=== PATIENT | female | born 1980 | race Caucasian/White ===

== ENCOUNTER 2022-05-27 09:42 | Outpatient (CLI) | payer OTHER, SELFPAY ==
--- NOTE | 2022-05-27 09:55 | MM_ITS ---
WS: [id number] SCREENING DIGITAL BREAST TOMOSYNTHESIS MAMMOGRAM WITH CAD HISTORY: SCREENING COMPARISON: None available. Bilateral CC and MLO with tomosynthesis and synthetic mammography submitted. Computer aided detection analyzed. Breast composition: There are scattered areas of fibroglandular density. There is a very slight area of architectural distortion and asymmetry in the upper outer quadrant of the LEFT breast near 1-2 o'c lock. This asymmetry is in the posterior breast. Otherwise negative. MM/[id number] IMPRESSION: BI-RADS: 0-Incomplete: Need additional imaging evaluation FOLLOW UP: Need Additional Imaging LEFT breast: Spot compression views (CC and MLO). True ML. Ultrasound to follow if abnormality persists.
== END 2022-05-27 09:43 | disposition home or self-care (01) ==
LOC: RAD 09:51
PROVIDERS: PCP Nurse Practitioner; Visit Provider Nurse Practitioner
DX: Z12.31 Encounter for screening mammogram for malignant neoplasm of breast (principal)
CPT/HCPCS: 77063; 77067

== ENCOUNTER 2022-06-23 08:46 | Outpatient (CLI) | payer OTHER, SELFPAY ==
--- NOTE | 2022-06-23 08:55 | MM_ITS ---
WS: [id number] ADDITIONAL VIEWS LEFT MAMMOGRAM with tomosynthesis. LEFT BREAST ULTRASOUND HISTORY: ABNORMAL MAMMO COMPARISON: 05/27/2022 LEFT MAMMOGRAM: Spot compression views and true ML with tomosynthesis and sympathetic mammography. Asymmetry persists but there is less distortion. As this is the patient's initial examination ultraso und will also be performed to document no underlying abnormality seen only by ultrasound. LEFT BREAST ULTRASOUND 2-D and color Doppler imaging submitted. Ultrasound directed to the upper-outer quadrant. No abnormality is identified. Normal fibroglandular densities. MM/[id number] IMPRESSION: BI-RADS: 2-Benign FOLLOW UP: 1 Year Follow-up
== END 2022-06-23 08:47 | disposition home or self-care (01) ==
LOC: RAD 08:47
PROVIDERS: PCP Nurse Practitioner; Visit Provider Nurse Practitioner
DX: R92.8 Other abnormal and inconclusive findings on diagnostic imaging of breast (principal)
CPT/HCPCS: 76642; 77061; G0279

== ENCOUNTER 2022-08-12 20:00 | Outpatient (CLI) | payer OTHER, SELFPAY | END 2022-08-12 20:01 | disposition home or self-care (01) | LOC: SLEEP 08-13 07:41 | PROVIDERS: PCP Nurse Practitioner; Visit Provider Nurse Practitioner | DX: R06.83 Snoring (principal); R53.83 Other fatigue; G47.33 Obstructive sleep apnea (adult) (pediatric) | CPT/HCPCS: 95810 ==

== ENCOUNTER → 2022-09-01 12:39 | Outpatient (BNVA) | payer OTHER, SELFPAY | PROVIDERS: PCP Nurse Practitioner; Visit Provider Internal Medicine Pulmonary Disease | DX: J45.909 Unspecified asthma, uncomplicated (principal); J44.9 Chronic obstructive pulmonary disease, unspecified; R06.02 Shortness of breath | CPT/HCPCS: 36415; 82785; 85025; 86003; 99204 ==

== ENCOUNTER 2022-09-11 11:11 | Outpatient (CLI) | payer OTHER, SELFPAY ==
--- NOTE | 2022-09-11 11:22 | XR_ITS ---
WS: [id number] Chest 2 views, 09/11/2022 Clinical Data: Shortness of breath Comparison: None. Findings: No nodules, masses or effusions are seen. The heart is normal. The pulmonary vascularity is not increased. No pneumonia or pneumothorax is seen. XR/XR chest 2V* [id number] Impression: Negative chest.
== END 2022-09-11 11:12 | disposition home or self-care (01) ==
LOC: RAD 11:13
PROVIDERS: PCP Nurse Practitioner; Visit Provider Internal Medicine Pulmonary Disease
DX: R06.02 Shortness of breath (principal)
CPT/HCPCS: 71046

== ENCOUNTER → 2022-12-03 12:17 | Outpatient (BNVA) | payer OTHER, SELFPAY | PROVIDERS: PCP Nurse Practitioner; Visit Provider Internal Medicine Pulmonary Disease | DX: J45.909 Unspecified asthma, uncomplicated (principal); G47.33 Obstructive sleep apnea (adult) (pediatric); M25.641 Stiffness of right hand, not elsewhere classified; M25.642 Stiffness of left hand, not elsewhere classified | CPT/HCPCS: 99214 ==

== ENCOUNTER 2022-12-18 07:02 | Outpatient (CLI) | payer OTHER, SELFPAY | END 2022-12-18 07:03 | disposition home or self-care (01) | LOC: RT 07:04 | PROVIDERS: PCP Nurse Practitioner; Visit Provider Internal Medicine Pulmonary Disease | DX: J44.9 Chronic obstructive pulmonary disease, unspecified (principal) | CPT/HCPCS: 94010; 94726; 94729 ==

== ENCOUNTER → 2023-01-29 10:02 | Outpatient (BNVA) | payer OTHER, SELFPAY | PROVIDERS: PCP Nurse Practitioner; Visit Provider Internal Medicine Rheumatology | DX: M19.90 Unspecified osteoarthritis, unspecified site (principal); Z79.899 Other long term (current) drug therapy; Z11.59 Encounter for screening for other viral diseases | CPT/HCPCS: 36415; 73130; 80076; 82306; 82565; 85025; 85651; 86038; 86140; 86200; 86431; 86480; 86704; 86803; 87340; 99204 ==

== ENCOUNTER → 2023-02-18 13:23 | Outpatient (BNVA) | payer OTHER, SELFPAY | PROVIDERS: PCP Nurse Practitioner; Visit Provider Internal Medicine Pulmonary Disease | DX: J45.909 Unspecified asthma, uncomplicated (principal); M25.641 Stiffness of right hand, not elsewhere classified; M25.642 Stiffness of left hand, not elsewhere classified; G47.33 Obstructive sleep apnea (adult) (pediatric); F40.240 Claustrophobia; Z79.51 Long term (current) use of inhaled steroids | CPT/HCPCS: 99214 ==

== ENCOUNTER → 2023-04-02 09:27 | Outpatient (BNVA) | payer OTHER, SELFPAY | PROVIDERS: PCP Nurse Practitioner; Visit Provider Internal Medicine Rheumatology | DX: Z79.899 Other long term (current) drug therapy (principal); M19.90 Unspecified osteoarthritis, unspecified site; Z71.85 Encounter for immunization safety counseling; R21 Rash and other nonspecific skin eruption | CPT/HCPCS: 36415; 80076; 82565; 83520; 85025; 86140; 99214 ==

== ENCOUNTER 2023-05-22 00:36 | Emergency (ER) | payer OTHER, SELFPAY ==
--- NOTE | 2023-05-22 00:42 | XRR_ITS ---
PROCEDURE INFORMATION: Exam: XR Chest Exam date and time: 05/22/2023 1:10 AM Age: 43 years old Clinical indication: Chest pressure; Patient HX: C/O chest pain TECHNIQUE: Imaging protocol: Radiologic exam of the chest. Views: 1 view. COMPARISON: CR XR chest 2V* [id number] 09/11/2022 11:26 AM FINDINGS: Lungs: Unremarkable. No consolidation. Pleural spaces: Unremarkable. No pleural effusion. No pneumothorax. Heart/Mediastinum: Unremarkable. No cardiomegaly. Bones/joints: Unremarkable. XR/XR chest 1V portable [id number] IMPRESSION: No acute findings.
--- NOTE | 2023-05-22 00:44 | ECG_ITS ---
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 Measurements Intervals [place] Rate: 66 P: 43 NE: 127 QRS: 56 QRSD: 89 T: 19 QT: 404 QTc: 425 Interpretive Statements SINUS RHYTHM No previous ECG available for comparison Electronically Signed On 05-22-2023 7:07:34 CDT by Malika Radford M.D. [id number]
[2023-05-22 00:46] VITALS: BMI 34.9
[2023-05-22 00:49] VITALS: BP 145/79; PULSE 70; RESP 16; TEMP 36.7; O2SAT 99
[2023-05-22 01:11] LABS: Basophils # 0.1 10^3/uL (0.0-0.1); Basophils % 0.5 %; Eosinophils # 0.2 10^3/uL (0.0-0.8); Eosinophils % 1.5 %; Hematocrit 32.4 % (36-47); Lymphocytes # 3.2 10^3/uL (0.8-4.8); Lymphocytes % 29.3 %; Mean Corpuscular HGB Conc 31.2 g/dL (30-55); Mean Corpuscular Hemoglobin 27.2 pg (27-33); Mean Corpuscular Volume 87.1 fl (85-98); Mean Platelet Volume 9.5 fL (7.4-10.4); Monocytes # 1.1 10^3/uL (0.2-0.9); Monocytes % 9.9 %; Neutrophils # 6.38 10^3/uL (1.8-7.7); Neutrophils % 58.4 %; Nucleated Red Blood Cells % 0 %; Platelet Count 392 10^3/cmm (157-399); Red Blood Count 3.72 10^6/uL (3.85-5.65); Red Cell Distribution Width 13.2 % (12.1-15.1); White Blood Count 10.91 10^3/uL (3.29-11.43)
[2023-05-22 01:35] LABS: Troponin(5th) Baseline < 6 ng/L (0-10)
--- NOTE | 2023-05-22 01:37 | W.ED.CHESTPA ---
HPI - Chest Pain General: Chief Complaint: Chest Pain Stated Complaint: Chest Pains Since Yesterday Time Seen by Provider: 05/22/23 00:45 History of Present Illness: Patient presents to the ER with complaints of midsternal chest pain that radiated to her back. It started earlier today around 1630 at that time is about 8 out of 10 and then the pain lessened and then it returned about 20-30. She had the pain was too bad to lay down. She was nauseous and dizzy. She has appointment for an echo coming up within the next couple days. Patient has had a CT scan of her chest within the last several days that showed a diverticulum on the right ventricle. Patient did not know anything about this prior to the CT scan. Patient has had multiple x-rays of her chest before that were negative. Review of Systems General: Reports: 10 or more systems reviewed and unremarkable except in HPI and below PFSH ED PFSH: Medical History Asthma Attention deficit Autoimmune thyroiditis Cervicalgia Dysmenorrhea, unspecified Dianna's disease High risk medication use Immunization counseling Inflammatory arthritis Iron deficiency anemia, unspecified Low back pain, unspecified Low ferritin level Migraine with aura, not intractable, without status migrainosus DEYANIRA (obstructive sleep apnea) Other fatigue Personal history of traumatic brain injury Skin rash Family History Other Cancer Hypertension Lung disease Lupus Denies family history of Rheumatoid arthritis Diabetes CAD (coronary artery disease) Chronic kidney disease (CKD) Family history of premature coronary artery disease Stroke Social History Smoking and tobacco/nicotine status: never used tobacco/nicotine Alcohol intake: current Alcohol intake frequency: few times a month Physical Exam Const: COMMON NORMALS: no acute distress, average body habitus, patient oriented x3, no limitations, healthy appearing, alert and well nourished HENMT: COMMON NORMALS: normocephalic, atraumatic, hearing grossly normal bilaterally, external ears normal, Normal external nose present, moist oral mucous membranes and oropharynx normal HEAD & SCALP: normocephalic and atraumatic NOSE: Normal external nose present EXTERNAL EAR: Yes external ears normal Neck/C-Spine: COMMON NORMALS: full ROM, no lymphadenopathy, supple, no meningeal signs, no JVD and Thyroid normal THYROID: Thyroid normal Chest: COMMONS NORMALS: normal inspection of the chest; negative for normal palpation of entire chest wall ( Chest wall tenderness to palpate on right side of anterior chest) Resp: COMMON NORMALS: normal respiratory effort, No retractions, No use of accessory muscles and clear to auscultation bilaterally AUSCULTATION: clear to auscultation bilaterally Cardio: COMMON NORMALS: no JVD, regular rate, regular rhythm, S1 normal heart sound present, S2 normal heart sound present, No gallops present (Cardio), No clicks present (Cardio), No murmurs present (Cardio) and No rub (Cardio) RATE: regular rate RHYTHM: regular rhythm HEART SOUNDS: S1 normal heart sound present and S2 normal heart sound present GI: COMMON NORMALS: Normal to inspection, nondistended, normoactive bowel sounds present, Soft to palpation, non-tender, No hepatosplenomegaly present and no masses PALPATION: Yes Soft to palpation and Yes No hepatosplenomegaly present : COMMON NORMALS: Yes no CVA tenderness BLADDER/KIDNEY EXAM: Yes no CVA tenderness Back/Pelvis: COMMON NORMALS: no CVA tenderness Neuro: COMMON NORMALS: patient oriented x3 SENSORIUM/ORIENTATION: Yes alert MENINGEAL SIGNS: Yes no meningeal signs Course Vital Signs: Vital signs: Vital Signs Temperature 98.0 F 05/22/23 00:49 Pulse Rate 58 L 05/22/23 02:49 Respiratory Rate 18 05/22/23 02:49 Blood Pressure 117/82 05/22/23 02:49 Pulse Oximetry 99 05/22/23 02:49 MDM - Chest Pain Medical Decision Making Patient presents to the ER with episodic chest pain. Patient was able to bring up a CT on her phone and said she has a right ventricular diverticulum. Patient has an echo scheduled coming up. Patient was worked up in the standard cardiac fashion with serial labs and serial EKGs all of which was essentially benign. Patient be discharged home to keep her appointment for her echo. Patient should follow-up with her PCP in the next 7 to 10 days as needed. Differential Diagnosis Unlikely acute massive pulmonary embolism, acute respiratory failure, acute myocardial infarction, cardiac arrest or sudden cardiac Medical Records I reviewed the patient's medical records. Lab Data I reviewed the patient's lab results. 05/22/23 01:04 05/22/23 01:04 Radiology Impressions Chest X-Ray 05/22/23 00:42 IMPRESSION: No acute findings. Laboratory Results WBC 10.91 10^3/uL (3.29-11.43) 05/22/23 01:04 RBC 3.72 10^6/uL (3.85-5.65) L 05/22/23 01:04 Hgb 10.10 g/dL (11.27-16.99) L 05/22/23 01:04 Hct 32.4 % (36-47) L 05/22/23 01:04 MCV 87.1 fl (85-98) 05/22/23 01:04 MCH 27.2 pg (27-33) 05/22/23 01:04 MCHC 31.2 g/dL (30-55) 05/22/23 01:04 RDW 13.2 % (12.1-15.1) 05/22/23 01:04 Plt Count 392 10^3/cmm (157-399) 05/22/23 01:04 MPV 9.5 fL (7.4-10.4) 05/22/23 01:04 Neut % (Auto) 58.4 % 05/22/23 01:04 Lymph % (Auto) 29.3 % 05/22/23 01:04 [place] % (Auto) 9.9 % 05/22/23 01:04 Eos % (Auto) 1.5 % 05/22/23 01:04 Baso % (Auto) 0.5 % 05/22/23 01:04 Neut # (Auto) 6.38 10^3/uL (1.8-7.7) 05/22/23 01:04 Lymph # (Auto) 3.2 10^3/uL (0.8-4.8) 05/22/23 01:04 [place] # (Auto) 1.1 10^3/uL (0.2-0.9) H 05/22/23 01:04 Eos # (Auto) 0.2 10^3/uL (0.0-0.8) 05/22/23 01:04 Baso # (Auto) 0.1 10^3/uL (0.0-0.1) 05/22/23 01:04 Nucleated RBC % (auto) 0 % 05/22/23 01:04 Nucleated RBCs # 0.0 /100WBC 05/22/23 01:04 Sodium 139 mmol/L (136-145) 05/22/23 01:04 Potassium 3.9 mmol/L (3.5-5.1) 05/22/23 01:04 Chloride 104 mmol/L (98-107) 05/22/23 01:04 Carbon Dioxide 25 mmol/L (22-29) 05/22/23 01:04 Anion Gap 13.9 (5-19) 05/22/23 01:04 BUN 8 mg/dL (6-20) 05/22/23 01:04 Creatinine 0.6 mg/dL (0.5-0.9) 05/22/23 01:04 GFR Calculation 109.6 mL/min (90-130) 05/22/23 01:04 Glucose 98 mg/dL (65-115) 05/22/23 01:04 Calculated Osmolality 286 mOsm/kg (285-295) 05/22/23 01:04 Calcium 9.4 mg/dL (8.5-10.5) 05/22/23 01:04 Total Bilirubin 0.2 mg/dL (0.15-1.2) 05/22/23 01:04 AST 16 U/L (0-32) 05/22/23 01:04 ALT 11 U/L (0-33) 05/22/23 01:04 Alkaline Phosphatase 107 U/L (35-105) H 05/22/23 01:04 Troponin T Baseline < 6 ng/L (0-10) 05/22/23 01:04 Troponin T 120 Minute < 6.0 ng/L (0-10) 05/22/23 02:34 Delta Troponin T 0 ABS# (0-10) 05/22/23 02:34 Total Protein 6.9 g/dL (6.6-8.7) 05/22/23 01:04 Albumin 4.2 g/dL (3.5-5.2) 05/22/23 01:04 Globulin 2.7 g/dL (1.3-4.6) 05/22/23 01:04 All radiology interpretation(s) finalized by discharge EKG Data EKG 1: I personally reviewed and interpreted this EKG as follows: EKG interpretation date: 05/22/23 EKG interpretation time: 00:44 Prior EKG tracings: not available for review Interpretation: EKG showed ventricular rate 66 beats a minute, OH interval 127, QRS duration 89, QTc of 418, sinus rhythm, no ST-T wave changes EKG 2: I personally reviewed and interpreted this EKG as follows: EKG interpretation date: 05/22/23 EKG interpretation time: 02:55 Prior EKG tracings: available for review Interpretation: EKG shows ventricular rate 61 beats a minute, OH interval 129, QRS duration 90, QTc 431, sinus rhythm with a sinus arrhythmia. Discharge Plan Discharge Patient Disposition: Home Clinical Impression: Atypical chest pain Condition: Stable Prescriptions: No Action albuterol sulfate 90 mcg/actuation HFA aerosol inhaler 2 puff inhalation Q6H PRN fluticasone propion-salmeterol [Wixela Inhub] 100-50 mcg/dose blister with device 1 inh inhalation BID Qty: 60 3RF ascorbic acid (vitamin C) 250 mg tablet 250 mg PO DAILY cholecalciferol (vitamin D3) 25 mcg (1,000 unit) capsule 25 mcg PO DAILY ferrous sulfate 325 mg (65 mg iron) tablet 325 mg PO DAILY levothyroxine 125 mcg capsule 125 mcg PO DAILY ibuprofen 200 mg tablet 200 mg PO Q6H PRN hydroxychloroquine 200 mg tablet 200 mg PO BID Qty: 180 0RF leflunomide 20 mg tablet 20 mg PO DAILY Qty: 90 0RF prednisone 20 mg tablet See Rx Instructions PO .COMPLEX PRN (Reason: joint pain flare) Qty: 30 1RF Rx Instructions: take 1 daily for 3-7 days PRN joint pain flare PO PRN; Discharge Orders: Discharge ED (Routine); Ordered 05/22/23 Ordered By: Murtaza Otero Referrals: Sarah Santiago FNP [Primary Care Provider] - 1 week Patient Instructions: Chest Pain (ED) Activity Restrictions/Additional Instructions: please keep your appointment for your echo as previous scheduled. Please follow-up with your family practice physician for further evaluation and testing. If your chest pain returns or worsens Coding Level of Care Code ED Business Office Specialist for Maricarmen Michel
[2023-05-22 01:41] LABS: Alanine Aminotransferase 11 U/L (0-33); Albumin Level 4.2 g/dL (3.5-5.2); Alkaline Phosphatase 107 U/L (35-105); Anion Gap 13.9 (5-19); Aspartate Amino Transferase 16 U/L (0-32); Blood Urea Nitrogen 8 mg/dL (6-20); Calcium 9.4 mg/dL (8.5-10.5); Carbon Dioxide 25 mmol/L (22-29); Chloride 104 mmol/L (98-107); Globulin 2.7 g/dL (1.3-4.6); Glomerular Filtration Rate 109.6 mL/min (90-130); Glucose 98 mg/dL (65-115); Osmolality Calculated 286 mOsm/kg (285-295); Potassium 3.9 mmol/L (3.5-5.1); Sodium 139 mmol/L (136-145); Total Bilirubin 0.2 mg/dL (0.15-1.2); Total Protein 6.9 g/dL (6.6-8.7)
[2023-05-22 02:49] VITALS: BP 117/82; PULSE 58; RESP 18; O2SAT 99
--- NOTE | 2023-05-22 02:55 | ECG_ITS ---
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 Measurements Intervals [place] Rate: 61 P: 49 ND: 129 QRS: 60 QRSD: 90 T: 29 QT: 429 QTc: 433 Interpretive Statements SINUS RHYTHM WITH SINUS ARRHYTHMIA Compared to ECG 05/22/2023 00:44:23 No significant changes Electronically Signed On 05-22-2023 7:08:49 CDT by Malika Radford M.D. [id number]
[2023-05-22 03:01] LABS: Troponin 5 2HR < 6.0 ng/L (0-10); Troponin 5 2HR Delta 0 ABS# (0-10)
[2023-05-22 03:12] VITALS: BP 101/72; PULSE 52; RESP 16; O2SAT 99
== END 2023-05-22 03:28 | disposition home or self-care (01) ==
PROVIDERS: Emergency Provider Emergency Medicine; PCP Nurse Practitioner
DX: R07.89 Other chest pain (principal)
CPT/HCPCS: 71045; 80053; 84484; 85025; 93005; 99285

== ENCOUNTER 2023-05-28 08:17 | Outpatient (CLI) | payer OTHER, SELFPAY ==
--- NOTE | 2023-05-28 08:22 | MM_ITS ---
WS: [id number] BILATERAL SCREENING DIGITAL TOMOSYNTHESIS MAMMOGRAM WITH CAD HISTORY: SCREENING COMPARISON: 05/27/2022 and 06/23/2022 Bilateral CC and MLO views with tomosynthesis and synthetic mammography submitted. Computer aided det ection analyzed. Breast composition: There are scattered areas of fibroglandular density. No suspicious masses, microc alcifications or architectural distortion. Asymmetric soft tissue in the upper outer quadrant LEFT br east is similar to the prior study. IMPRESSION: MM/[id number] BI-RADS: 2-Benign FOLLOW UP: 1 Year Follow-up
== END 2023-05-28 08:18 | disposition home or self-care (01) ==
LOC: RAD 08:17
PROVIDERS: PCP Nurse Practitioner; Visit Provider Nurse Practitioner
DX: Z12.31 Encounter for screening mammogram for malignant neoplasm of breast (principal)
CPT/HCPCS: 77063; 77067

== ENCOUNTER → 2023-06-16 09:16 | Outpatient (BNVA) | payer OTHER, SELFPAY | PROVIDERS: PCP Nurse Practitioner; Referring Provider Nurse Practitioner; Visit Provider Internal Medicine Cardiovascular Disease | DX: Z01.810 Encounter for preprocedural cardiovascular examination (principal); J45.909 Unspecified asthma, uncomplicated; G47.33 Obstructive sleep apnea (adult) (pediatric); E06.3 Autoimmune thyroiditis | CPT/HCPCS: 99204 ==

== ENCOUNTER 2023-07-16 07:57 | Outpatient (CLI) | payer OTHER, SELFPAY ==
[2023-07-16 08:12] VITALS: PULSE 56; RESP 18; O2SAT 99
[2023-07-16 08:16] VITALS: PULSE 55
== END 2023-07-16 07:58 | disposition home or self-care (01) ==
LOC: RT 07:57
PROVIDERS: PCP Nurse Practitioner; Visit Provider Nurse Practitioner Family
DX: J45.909 Unspecified asthma, uncomplicated (principal)
CPT/HCPCS: 94060; 94729; J7613

== ENCOUNTER 2023-08-20 08:47 | Outpatient (CLI) | payer OTHER, SELFPAY ==
[2023-08-20 09:10] LABS: Basophils # 0.1 10^3/uL (0.0-0.1); Basophils % 1.1 %; Eosinophils # 0.3 10^3/uL (0.0-0.8); Eosinophils % 4.2 %; Hematocrit 32.6 % (36-47); Lymphocytes # 2.2 10^3/uL (0.8-4.8); Lymphocytes % 34.5 %; Mean Corpuscular Hemoglobin 25.6 pg (27-33); Mean Corpuscular Volume 82.7 fl (85-98); Mean Platelet Volume 9.5 fL (7.4-10.4); Monocytes # 0.6 10^3/uL (0.2-0.9); Monocytes % 9.9 %; Neutrophils # 3.24 10^3/uL (1.8-7.7); Nucleated Red Blood Cells % 0 %; Platelet Count 465 10^3/cmm (157-399); Red Blood Count 3.94 10^6/uL (3.85-5.65); Red Cell Distribution Width 13.3 % (12.1-15.1); White Blood Count 6.47 10^3/uL (3.29-11.43)
[2023-08-20 09:27] LABS: Alanine Aminotransferase 20 U/L (0-33); Albumin Level 3.9 g/dL (3.5-5.2); Alkaline Phosphatase 108 U/L (35-105); Aspartate Amino Transferase 27 U/L (0-32); C Reactive Protein 5.3 mg/L (0.0-4.9); Ferritin 8 ng/mL (15-150); Globulin 3.6 g/dL (1.3-4.6); Glomerular Filtration Rate 109.6 mL/min (90-130); Iron 32 ug/dL (37-145); Percent Saturation 8.4 % (20-50); Total Bilirubin 0.2 mg/dL (0.15-1.2); Total Iron Binding Capacity 378 mcg/dl; Total Protein 7.5 g/dL (6.6-8.7); Unsaturated Iron Binding 346 ug/dL (112-347)
== END 2023-08-20 08:48 | disposition home or self-care (01) ==
LOC: LAB 08:47
PROVIDERS: PCP Nurse Practitioner; Visit Provider Internal Medicine Rheumatology
DX: M19.90 Unspecified osteoarthritis, unspecified site (principal); Z79.899 Other long term (current) drug therapy; D64.9 Anemia, unspecified
CPT/HCPCS: 36415; 80076; 82565; 82728; 83540; 83550; 85025; 86140

== ENCOUNTER → 2023-09-28 08:09 | Outpatient (BNVA) | payer OTHER, SELFPAY | PROVIDERS: PCP Nurse Practitioner; Visit Provider Podiatrist Foot & Ankle Surgery | DX: Q66.71 Congenital pes cavus, right foot; Q66.72 Congenital pes cavus, left foot; M72.2 Plantar fascial fibromatosis | CPT/HCPCS: 73630; 99203 ==

== ENCOUNTER → 2023-10-01 09:12 | Outpatient (BNVA) | payer OTHER, SELFPAY | PROVIDERS: PCP Nurse Practitioner; Visit Provider Internal Medicine Rheumatology | DX: Z79.899 Other long term (current) drug therapy (principal); M06.041 Rheumatoid arthritis without rheumatoid factor, right hand; M06.042 Rheumatoid arthritis without rheumatoid factor, left hand; Z71.85 Encounter for immunization safety counseling; R21 Rash and other nonspecific skin eruption | CPT/HCPCS: 99214 ==

== ENCOUNTER → 2023-11-26 08:40 | Outpatient (BNVA) | payer OTHER, SELFPAY | PROVIDERS: PCP Nurse Practitioner; Visit Provider Internal Medicine Pulmonary Disease | DX: J45.40 Moderate persistent asthma, uncomplicated (principal); M25.641 Stiffness of right hand, not elsewhere classified; M25.642 Stiffness of left hand, not elsewhere classified; G47.33 Obstructive sleep apnea (adult) (pediatric) | CPT/HCPCS: 99214 ==

== ENCOUNTER → 2024-01-13 07:56 | Outpatient (BNVA) | payer OTHER, SELFPAY | PROVIDERS: PCP Nurse Practitioner; Referring Provider Nurse Practitioner; Visit Provider Surgery | DX: D64.9 Anemia, unspecified | CPT/HCPCS: 99204 ==

== ENCOUNTER 2024-02-14 21:05 | Emergency (ER) | payer OTHER, SELFPAY ==
[2024-02-14 21:13] VITALS: BP 149/84; PULSE 62; RESP 17; TEMP 36.6; O2SAT 98; BMI 35.6
--- NOTE | 2024-02-14 21:54 | W.ED.FEVER ---
HPI - Fever General: Chief Complaint: Fever Stated Complaint: Positive for rock [place] Spotted Fever\Head Pain Time Seen by Provider: 02/14/24 21:25 History of Present Illness: 44-year-old female comes in today with feeling of malaise for the last week. Patient had been seen by her primary care and had a tick panel done. Patient reported recent tick bite about 2 weeks ago. Patient had checked the portal for her lab results and noted that she was positive for Hatch spotted fever. Patient was going to wait until she talk to her primary care tomorrow but started running fevers yesterday and was prodded by her significant other to come to the ER to get started on antibiotics sooner. Patient appears mildly unwell but not toxic. Patient appears in mild pain. Review of Systems General: Reports: 10 or more systems reviewed and unremarkable except in HPI and below PFSH ED PFSH: Medical History (Updated 02/14/24 @ 21:58 by TJ Brody) Seronegative rheumatoid arthritis of both hands Radial tunnel syndrome surgical release left arm Skin rash Immunization counseling High risk medication use Inflammatory arthritis Dianna's disease Attention deficit Autoimmune thyroiditis Cervicalgia Dysmenorrhea, unspecified Low ferritin level Iron deficiency anemia, unspecified Low back pain, unspecified Migraine with aura, not intractable, without status migrainosus Other fatigue Personal history of traumatic brain injury DEYANIRA (obstructive sleep apnea) Asthma Surgical History (Updated 01/13/24 @ 08:02 by NILDA Granger) History of elbow surgery tendon re pair Family History Other Cancer Hypertension Lung disease Lupus Denies family history of Rheumatoid arthritis Diabetes CAD (coronary artery disease) Chronic kidney disease (CKD) Family history of premature coronary artery disease Stroke Social History Smoking and tobacco/nicotine status: never used tobacco/nicotine Alcohol intake: current Alcohol intake frequency: few times a month Physical Exam Const: COMMON NORMALS: alert HENMT: COMMON NORMALS: normocephalic HEAD & SCALP: normocephalic Neck/C-Spine: COMMON NORMALS: full ROM Resp: COMMON NORMALS: normal respiratory effort and clear to auscultation bilaterally AUSCULTATION: clear to auscultation bilaterally Cardio: COMMON NORMALS: regular rate and regular rhythm RATE: regular rate RHYTHM: regular rhythm GI: COMMON NORMALS: Soft to palpation and non-tender PALPATION: Yes Soft to palpation Back/Pelvis: COMMON NORMALS: thoracic and lumbar spine normal to inspection Extremity: COMMON NORMALS: full ROM Neuro: SENSORIUM/ORIENTATION: Yes alert Skin: COMMON NORMALS: turgor normal GENERAL SKIN EXAM: turgor normal Course Vital Signs: Vital signs: Vital Signs Temperature 97.9 F 02/14/24 21:13 Pulse Rate 62 02/14/24 21:13 Respiratory Rate 17 02/14/24 21:13 Blood Pressure 149/84 02/14/24 21:13 Pulse Oximetry 98 02/14/24 21:13 Oxygen Delivery Me thod Room Air 02/14/24 21:13 MDM - Fever Medical Decision Making Patient came in tonight to get started on doxycycline for her positive Hatch spotted Fever panel. Patient brought her results with her. Patient reports increasing fever over the last 2 days and increasing general malaise and fatigue. Differential diagnosis includes but not limited to viral syndrome, Hatch spotted fever, malingering. Will go ahead and treat with doxycycline 100 mg twice a day for the next 21 days. Patient reports understanding of care plan need for follow-up or return to the ER. No radiology studies performed this visit Discharge Plan Discharge Patient Disposition: Home Clinical Impression: [place] tick fever Condition: Stable Prescriptions: New doxycycline hyclate 100 mg capsule 100 mg PO Q12H 21 Days Qty: 42 0RF No Action albuterol sulfate 90 mcg/actuation HFA aerosol inhaler 2 puff inhalation Q6H PRN sulfasalazine 500 mg tablet 1 g PO BID Qty: 120 5RF Rx Instructions: Take 1 QD daily x1wk then 1 BID x1wk then 2 in AM and 1 HS for 1wk then stay on 2 BID. give with food. prednisone 5 mg tablet 5 mg PO DAILY Qty: 90 1RF hydroxychloroquine 200 mg tablet 200 mg PO BID Qty: 180 1RF pantoprazole PO DAILY Breztri Aerosphere 160-9-4.8 mcg/actuation HFA aerosol inhaler 2 inh inhalation BID Qty: 10.7 3RF cyclobenzaprine 10 mg tablet PO (DME) Low profile Custom insoles See Rx Instructions .Route .MEDSUPPLY Qty: 1 0RF Rx Instructions: As directed by [facility] ascorbic acid (vitamin C) 250 mg tablet 250 mg PO DAILY cholecalciferol (vitamin D3) 25 mcg (1,000 unit) capsule 25 mcg PO DAILY levothyroxine 125 mcg capsule 125 mcg PO DAILY ibuprofen 200 mg tablet 200 mg PO Q6H PRN prednisone 20 mg tablet See Rx Instructions PO .COMPLEX PRN (Reason: joint pain flare) Qty: 30 1RF Rx Instructions: take 1 daily for 3-7 days PRN joint pain flare PO PRN; fluticasone propion-salmeterol [Wixela Inhub] 250-50 mcg/dose blister with device 1 inh inhalation BID Qty: 60 1RF Spiriva Respimat 1.25 mcg/actuation mist 2 puff inhalation DAILY Qty: 4 1RF Discharge Orders: Discharge ED (Routine); Ordered 02/14/24 Ordered By: Dank Rivera Referrals: Sarah Santiago, ENTRY LEVEL ACCOUNTING CLERK [Primary Care Provider] - Discharge Diet: Usual diet Discharge Activity: Increase activity as tolerated Patient Instructions: [place] Spotted Fever (ED) Activity Restrictions/Additional Instructions: Take doxycycline 100 mg twice a day for the next 21 days. Drink plenty of water with medication. Follow-up with primary care for further instructions. Return to ED for new concerns. Avoid direct sunlight as you may be more photosensitive due to the doxycycline. Coding Level of Care Code ED Nursing Officer for Maricarmen Mihcel
[2024-02-14] MEDS: doxycycline 100 mg Tablet PO (22:03)
[2024-02-14 22:06] VITALS: PULSE 60; RESP 16; O2SAT 99
[2024-02-14 22:08] VITALS: PULSE 65; RESP 16; O2SAT 99
== END 2024-02-14 22:09 | disposition home or self-care (01) ==
PROVIDERS: Emergency Provider Nurse Practitioner Family; PCP Nurse Practitioner
DX: A77.0 Spotted fever due to Rickettsia rickettsii (principal)
CPT/HCPCS: 99283

== ENCOUNTER → 2024-03-22 12:46 | Outpatient (BNVA) | payer OTHER, SELFPAY | PROVIDERS: PCP Nurse Practitioner; Visit Provider Internal Medicine Rheumatology | DX: M06.041 Rheumatoid arthritis without rheumatoid factor, right hand (principal); M06.042 Rheumatoid arthritis without rheumatoid factor, left hand; Z79.899 Other long term (current) drug therapy; Z71.85 Encounter for immunization safety counseling; R21 Rash and other nonspecific skin eruption | CPT/HCPCS: 36415; 80076; 82565; 85025; 85651; 86140; 99214 ==

== ENCOUNTER 2024-05-12 06:37 | Day surgery (SDC) | payer OTHER, SELFPAY ==
[2024-05-12 06:51] VITALS: BP 142/82; PULSE 69; RESP 18; TEMP 36.1; O2SAT 97; BMI 35.2
[2024-05-12 06:57] LABS: OR HCG Qualitative Urine Negative (Negative)
[2024-05-12] MEDS: sodium chloride 0.9% 1,000 ML 30 ML IV (06:58)
--- NOTE | 2024-05-12 06:58 | P.HP_ITS ---
Same Day Surgery H&P Indication for Procedure/HPI DATE OF PROCEDURE: May 12, 2024 CHIEF COMPLAINT/INDICATIONFOR SURGICAL PROCEDURE: iron deficiency anemia PREOP DIAGNOSIS: iron deficiency anemia PLANNED PROCEDURE: Operation Date: 05/12/24 07:55 Proposed Procedures p EGD [id number], 02932, G0105, D50.9(Not Applicable) - Tenzin Quach MD s Colonoscopy(Not Applicable) - Tenzin Quach MD Medications/Allergies* Home Medications Medication Instructions Recorded Confirmed Type ascorbic acid (vitamin C) 250 mg 250 mg PO DAILY 09/01/22 05/10/24 History tablet cholecalciferol (vitamin D3) 25 25 mcg PO DAILY 09/01/22 05/10/24 History mcg (1,000 unit) capsule ibuprofen 200 mg tablet 200 mg PO Q6H PRN Pain 09/01/22 05/10/24 History levothyroxine 125 mcg capsule 125 mcg PO DAILY 09/01/22 05/10/24 History albuterol sulfate 90 mcg/actuation 2 puff inhalation Q6H PRN 12/03/22 05/10/24 History aerosol inhaler Shortness Of Breath cyclobenzaprine 10 mg tablet 10 mg PO DAILY PRN Muscle Spasm 09/28/23 05/10/24 History Allergies/Adverse Reactions Allergy/AdvReac Type Severity Reaction Status Date / Time leflunomide AdvReac Intermediate diarrhea Verified 05/10/24 09:54 kiwi Allergy Intermediate Unknown Uncoded 05/10/24 09:54 Pertinent History/Comorbid Conditions* Medical History (Updated 02/22/24 @ 00:01 by SUZY Miramontes) Seronegative rheumatoid arthritis of both hands Radial tunnel syndrome surgical release left arm Skin rash Immunization counseling High risk medication use Inflammatory arthritis Dianna's disease Attention deficit Autoimmune thyroiditis Cervicalgia Dysmenorrhea, unspecified Low ferritin level Iron deficiency anemia, unspecified Low back pain, unspecified Migraine with aura, not intractable, without status migrainosus Other fatigue Personal history of traumatic brain injury DEYANIRA (obstructive sleep apnea) Asthma Surgical History (Updated 06/19/23 @ 07:29 by Malika Radford MD) History of elbow surgery tendon re pair Family History (Updated 01/29/23 @ 09:17 by Anali Tabares LPN) Lupus Lung disease Cancer Hypertension Denies family history of Rheumatoid arthritis Diabetes CAD (coronary artery disease) Chronic kidney disease (CKD) Family history of premature coronary artery disease Stroke Social History Smoking and tobacco/nicotine status: never used tobacco/nicotine Alcohol intake: current Alcohol intake frequency: holidays/special occasions only Pertinent Exam Findings alert, oriented x 3, clear to auscultation bilaterally, regular rate & rhythm and operative site marked Recommendations Surgery/Procedure today Coding Level of Care Code Acute Code for [facility]
--- NOTE | 2024-05-12 07:19 | ANES.PREANE2 ---
Pre-Anesthetic Assessment Height/Weight: Height 1.6 m Weight 90.265 kg Temp Pulse Resp BP Pulse Ox O2 Del Method 97 F L 69 18 142/82 97 Room Air 05/12/24 06:51 05/12/24 06:51 05/12/24 06:51 05/12/24 06:51 05/12/24 06:51 05/12/24 06:51 Preop Diagnosis: iron deficiency anemia Operation Date: 05/12/24 07:55 Proposed Procedures p EGD [id number], [id number], G0105, D50.9(Not Applicable) - Tenzin Quach MD s Colonoscopy(Not Applicable) - Tenzin Quach MD Familial anesthetic complications: none Was Beta Jaquelin taken within 24 hours: N/A Was Clonidine taken within 24 hours: N/A Last intake: Intake Last Liquid Date 05/11/24 Last Liquid Time 23:00 Last Solid Date 05/10/24 Last Solid Time 12:00 Social Alcohol (seldom) and No tobacco Exam alert, oriented x 3, clear to auscultation bilaterally and regular rate & rhythm Airway Submandibular: within normal limits Cervical ROM: within normal limits Mallampati: Class II Dentition: full Pulmonary Asthma and Sleep Apnea CV/HEM None reported None reported Hepatic None reported GI None reported Metabolic Thyroid Disease Musc/sk Osteoarthritis/DJD Neuropsych Headache Anesthetic Plan ASA status: 2 Anesthesia: MAC Medications/Allergies Home Medications Medication Instructions Recorded Confirmed Last Taken Type ascorbic acid (vitamin C) 250 mg 250 mg PO DAILY 09/01/22 05/10/24 05/11/24 History tablet cholecalciferol (vitamin D3) 25 25 mcg PO DAILY 09/01/22 05/10/24 05/11/24 History mcg (1,000 unit) capsule ibuprofen 200 mg tablet 200 mg PO Q6H PRN Pain 09/01/22 05/10/24 05/08/24 History levothyroxine 125 mcg capsule 125 mcg PO DAILY 09/01/22 05/10/24 05/11/24 History albuterol sulfate 90 mcg/actuation 2 puff inhalation Q6H PRN 12/03/22 05/10/24 Unknown History aerosol inhaler Shortness Of Breath prednisone 20 mg tablet See Rx Instructions PO .COMPLEX 07/02/23 05/10/24 05/11/24 Rx PRN joint pain flare #30 tabs Low profile Custom insoles #1 ea 09/28/23 03/22/24 Unknown Rx cyclobenzaprine 10 mg tablet 10 mg PO DAILY PRN Muscle Spasm 09/28/23 05/10/24 Unknown History budesonide 160 mcg-glycopyr 9 2 inh inhalation BID #10.7 grams 11/29/23 05/10/24 05/11/24 Rx mcg-formot 4.8 mcg/actuation HFA inhaler (Breztri Aerosphere) fluticasone 250 mcg-salmeterol 50 1 inh inhalation BID #60 ea 01/06/24 05/10/24 05/11/24 Rx mcg/dose blistr powdr for inhalation (Wixela Inhub) tiotropium bromide 1.25 2 puff inhalation DAILY #4 grams 01/06/24 05/10/24 05/11/24 Rx mcg/actuation mist for inhalation (Spiriva Respimat) adalimumab 40 mg/0.8 mL 40 mg (0.8 mL) SUBCUT Q14D #2 ea 03/22/24 05/10/24 04/26/24 Rx subcutaneous pen kit (Humira Pen) hydroxychloroquine 200 mg tablet 200 mg PO BID #180 tabs 03/22/24 05/10/24 05/11/24 Rx Allergies Allergy/AdvReac Type Severity Reaction Status Date / Time leflunomide AdvReac Intermediate diarrhea Verified 05/10/24 09:54 kiwi Allergy Intermediate Unknown Uncoded 05/10/24 09:54 Current Medications Generic Name Dose Route Start Last Admin Trade Name Freq PRN Reason Stop Dose Admin Sodium Chloride 1,000 mls @ 30 mls/hr 05/12/24 06:45 05/12/24 06:58 Sodium Chloride 0.9% IV 30 mls/hr .Q24H AMINTA Administration PFSH Anesthesia Medical History Seronegative rheumatoid arthritis of both hands Radial tunnel syndrome surgical release left arm Skin rash Immunization counseling High risk medication use Inflammatory arthritis Dianna's disease Attention deficit Autoimmune thyroiditis Cervicalgia Dysmenorrhea, unspecified Low ferritin level Iron deficiency anemia, unspecified Low back pain, unspecified Migraine with aura, not intractable, without status migrainosus Other fatigue Personal history of traumatic brain injury DEYANIRA (obstructive sleep apnea) Asthma Surgical History History of elbow surgery tendon re pair Family History Other Cancer Hypertension Lung disease Lupus Denies family history of Rheumatoid arthritis Diabetes CAD (coronary artery disease) Chronic kidney disease (CKD) Family history of premature coronary artery disease Stroke Social History (Updated 03/22/24 @ 12:59 by Cathie Kinney LPN) Smoking and tobacco/nicotine status: never used tobacco/nicotine Alcohol intake: current Alcohol intake frequency: holidays/special occasions only Female Reproductive History Date of last menstrual period: 04/25/24 Data Anesthesia Cardiac Studies: No Data to Display
[2024-05-12 08:32] VITALS: BP 100/58; PULSE 67; RESP 17; TEMP 36.1; O2SAT 99
[2024-05-12 08:47] VITALS: BP 117/69; PULSE 73; RESP 18; O2SAT 100
--- NOTE | 2024-05-12 09:16 | ANE.PACU2 ---
Inpatient post-anesthesia follow up: Airway intact: Yes Vital signs: Temperature 97.0 F Pulse Rate 73 Respiratory Rate 18 Blood Pressure 117/69 Pulse Oximetry 100 Oxygen Delivery Me thod Room Air Oxygen Flow Rate Fraction of Inspir ed Oxygen Hydration adequate: Yes Nausea and vomiting: No Pain level: 1 Mental status: Baseline
== END 2024-05-12 09:16 | disposition home or self-care (01) ==
PROVIDERS: Student in an Organized Health Care Education/Training Program; PCP Nurse Practitioner; Visit Provider Surgery
PROC: 0DJ08ZZ Inspection of Upper Intestinal Tract, Via Natural or Artificial Opening Endoscopic (ICD-10-PCS; CPT 43235; principal; 2024-05-12 07:55)
PROC: 0DJD8ZZ Inspection of Lower Intestinal Tract, Via Natural or Artificial Opening Endoscopic (ICD-10-PCS; CPT 45378; 2024-05-12 07:55)
DX: D50.9 Iron deficiency anemia, unspecified (principal); K29.50 Unspecified chronic gastritis without bleeding; J45.909 Unspecified asthma, uncomplicated; M19.90 Unspecified osteoarthritis, unspecified site; Z79.52 Long term (current) use of systemic steroids; G47.33 Obstructive sleep apnea (adult) (pediatric)
CPT/HCPCS: 43239; 45378; 81025; 88305; 88342; J2704; J7030

== ENCOUNTER → 2024-05-24 14:05 | Outpatient (BNVA) | payer OTHER, SELFPAY | PROVIDERS: PCP Nurse Practitioner; Visit Provider Surgery | DX: Z09 Encounter for follow-up examination after completed treatment for conditions other than malignant neoplasm (principal) | CPT/HCPCS: 99213 ==

== ENCOUNTER 2024-06-24 06:05 | Emergency (ER) | payer OTHER, SELFPAY ==
[2024-06-24 06:10] VITALS: BP 108/91; PULSE 70; RESP 18; TEMP 36.7; O2SAT 99; BMI 35.4
--- NOTE | 2024-06-24 06:21 | XRR_ITS ---
PROCEDURE INFORMATION: Exam: XR Right Ankle Exam date and time: 06/24/2024 6:33 AM Age: 44 years old Clinical indication: Injury or trauma; Fall; Blunt trauma; Ankle; Bilateral TECHNIQUE: Imaging protocol: Radiologic exam of the right ankle. Views: 3 or more views. COMPARISON: [place] [id number] ORTH 09/28/2023 8:21 AM FINDINGS: Bones/joints: Normal. No fracture or dislocation. No acute osseous or joint abnormality. Soft tissues: Normal. XR/XR ankle RT min 3V* [id number] IMPRESSION: No acute findings.
--- NOTE | 2024-06-24 06:21 | XRR_ITS ---
PROCEDURE INFORMATION: Exam: XR Left Ankle Exam date and time: 06/24/2024 6:31 AM Age: 44 years old Clinical indication: Injury or trauma; Fall; Blunt trauma; Ankle; Bilateral TECHNIQUE: Imaging protocol: Radiologic exam of the left ankle. Views: 3 or more views. COMPARISON: [place] [id number] ORTH 09/28/2023 8:21 AM FINDINGS: Bones/joints: Normal. No fracture or dislocation. No acute osseous, joint, or soft tissue abnormality. Soft tissues: Normal. XR/XR ankle LT min 3V* [id number] IMPRESSION: No acute findings.
--- NOTE | 2024-06-24 06:28 | W.ED.FALL ---
HPI - Fall General: Chief Complaint: Fall Stated Complaint: Fall [place] Feet Time Seen by Provider: 06/24/24 06:15 History of Present Illness: 44-year-old female presents emergency room with complaint of bilateral ankle pain. She was. Going down the stairs missed stepped and ended up having inversion ankle injuries on both ankles. States she cannot bear weight on the right but can bear some weight on the left. She does have a little bit of swelling both of her ankles have pain at the lateral malleolus anteriorly. No ecchymosis no obvious deformity denies any other injury Related Data Home Medications Medication Instructions Recorded Confirmed ascorbic acid (vitamin C) 250 mg 250 mg PO DAILY 09/01/22 05/24/24 tablet cholecalciferol (vitamin D3) 25 25 mcg PO DAILY 09/01/22 05/24/24 mcg (1,000 unit) capsule levothyroxine 125 mcg capsule 125 mcg PO DAILY 09/01/22 05/24/24 albuterol sulfate 90 mcg/actuation 2 puff inhalation Q6H PRN 12/03/22 05/24/24 aerosol inhaler Shortness Of Breath cyclobenzaprine 10 mg tablet 10 mg PO DAILY PRN Muscle Spasm 09/28/23 05/24/24 Previous Rx's Medication Instructions Recorded Low profile Custom insoles #1 ea 09/28/23 budesonide 160 mcg-glycopyr 9 2 inh inhalation BID #10.7 grams 11/29/23 mcg-formot 4.8 mcg/actuation HFA inhaler (Breztri Aerosphere) fluticasone 250 mcg-salmeterol 50 1 inh inhalation BID #60 ea 01/06/24 mcg/dose blistr powdr for inhalation (Wixela Inhub) tiotropium bromide 1.25 2 puff inhalation DAILY #4 grams 01/06/24 mcg/actuation mist for inhalation (Spiriva Respimat) adalimumab 40 mg/0.8 mL 40 mg (0.8 mL) SUBCUT Q14D #2 ea 03/22/24 subcutaneous pen kit (Humira Pen) hydroxychloroquine 200 mg tablet 200 mg PO BID #180 tabs 03/22/24 pantoprazole 40 mg tablet,delayed 40 mg PO BID #60 tabs 05/12/24 release diclofenac sodium 75 mg 75 mg PO Q12H PRN pain #20 tabs 06/24/24 tablet,delayed release prednisone 20 mg tablet 20 mg PO TID #15 tabs 06/24/24 Allergies Allergy/AdvReac Type Severity Reaction Status Date / Time kiwi Allergy Intermediate Unknown Verified 05/25/24 08:36 leflunomide AdvReac Intermediate diarrhea Verified 05/10/24 09:54 Review of Systems Musc: Reports: joint pain (Bilaterally at the ankles) [facility] ED PFSH: Medical History Seronegative rheumatoid arthritis of both hands Radial tunnel syndrome surgical release left arm Skin rash Immunization counseling High risk medication use Inflammatory arthritis Dianna's disease Attention deficit Autoimmune thyroiditis Cervicalgia Dysmenorrhea, unspecified Low ferritin level Iron deficiency anemia, unspecified Low back pain, unspecified Migraine with aura, not intractable, without status migrainosus Other fatigue Personal history of traumatic brain injury DEYANIRA (obstructive sleep apnea) Asthma Surgical History History of elbow surgery tendon re pair Family History Other Cancer Hypertension Lung disease Lupus Denies family history of Rheumatoid arthritis Diabetes CAD (coronary artery disease) Chronic kidney disease (CKD) Family history of premature coronary artery disease Stroke Social History Smoking and tobacco/nicotine status: never used tobacco/nicotine Alcohol intake: current Alcohol intake frequency: holidays/special occasions only Female Reproductive History: Date of last menstrual period: 06/24/24 Physical Exam Extremity: OTHER: Examination of the ankle neurovascularly intact patient is able to dorsi and plantarflex bilaterally. Can plantarflex against resistance pain with palpation of the lateral malleoli bilaterally no ecchymosis no deformity no crepitus. Dorsalis pedis pulses intact bilaterally Course Vital Signs: Vital signs: Vital Signs Temperature 98.0 F 06/24/24 06:10 Pulse Rate 70 06/24/24 06:10 Respiratory Rate 18 06/24/24 06:10 Blood Pressure 108/91 06/24/24 06:10 Pulse Oximetry 99 06/24/24 06:10 Oxygen Delivery Me thod Room Air 06/24/24 06:10 MDM - Fall Medical Decision Making X-rays do not show any acute fractures. Patient given dexamethasone and ketorolac will start steroid taper tomorrow use diclofenac 1 every 12 hours as needed Cale wrap is placed crutches patient female she will be able to bear weight on the left leg with assistance. If no improvement the next 2 days follow-up with primary care can reevaluate or refer to Ortho or podiatry if appropriate Lab Data Radiology Impressions Ankle X-Ray 06/24/24 06:21 IMPRESSION: No acute findings. All radiology interpretation(s) finalized by discharge Discharge Plan Discharge Patient Disposition: Home Clinical Impression: Left ankle sprain, Right ankle sprain Condition: Stable Prescriptions: New prednisone 20 mg tablet 20 mg PO TID Qty: 15 0RF Rx Instructions: 1 p.o. 3 times daily x3 days, 1 p.o. twice daily x2 days, 1 p.o. daily x2 days diclofenac sodium 75 mg tablet,delayed release (DR/EC) 75 mg PO Q12H PRN (Reason: pain) Qty: 20 0RF Discontinued ibuprofen 200 mg tablet 200 mg PO Q6H PRN (Reason: Pain) prednisone 20 mg tablet See Rx Instructions PO .COMPLEX PRN (Reason: joint pain flare) Qty: 30 1RF Rx Instructions: take 1 daily for 3-7 days PRN joint pain flare PO PRN; No Action albuterol sulfate 90 mcg/actuation HFA aerosol inhaler 2 puff inhalation Q6H PRN (Reason: Shortness Of Breath) Breztri Aerosphere 160-9-4.8 mcg/actuation HFA aerosol inhaler 2 inh inhalation BID Qty: 10.7 3RF cyclobenzaprine 10 mg tablet 10 mg PO DAILY PRN (Reason: Muscle Spasm) (DME) Low profile Custom insoles See Rx Instructions .Route .MEDSUPPLY Qty: 1 0RF Rx Instructions: As directed [facility] ascorbic acid (vitamin C) 250 mg tablet 250 mg PO DAILY cholecalciferol (vitamin D3) 25 mcg (1,000 unit) capsule 25 mcg PO DAILY levothyroxine 125 mcg capsule 125 mcg PO DAILY hydroxychloroquine 200 mg tablet 200 mg PO BID Qty: 180 1RF Humira Pen 40 mg/0.8 mL pen injector kit 40 mg SUBCUT Q14D Qty: 2 5RF fluticasone propion-salmeterol [Wixela Inhub] 250-50 mcg/dose blister with device 1 inh inhalation BID Qty: 60 1RF Spiriva Respimat 1.25 mcg/actuation mist 2 puff inhalation DAILY Qty: 4 1RF pantoprazole 40 mg tablet,delayed release (DR/EC) 40 mg PO BID Qty: 60 3RF Discharge Orders: Discharge ED (Routine); Ordered 06/24/24 Ordered By: Robin Auguste Referrals: Sarah Santiago FNP [Primary Care Provider] - Discharge Diet: Usual diet Discharge Activity: Increase activity as tolerated Patient Instructions: Opioid Safety, Pain Management Activity Restrictions/Additional Instructions: Thank you for choosing [facility] for your healthcare needs today. It is very important that you follow up as instructed or that you return to the Emergency Department should you have concerns or if your condition changes or worsens in any way. You are seen today with complaints of bilateral ankle pain after inversion injuries. X-rays did not show any acute fractures. Recommend crutches weightbearing as tolerated. If not improving follow-up with your primary care doctor. You are given a steroid shot in the emergency room start the steroid taper tomorrow you can also use the diclofenac as needed. If you take the diclofenac do not take additional NSAIDs such as ibuprofen or Advil or Aleve. Coding Level of Care Code ED [employer] Operator for Maricarmen Michel
[2024-06-24] MEDS: ketorolac 30 mg/mL INJ 60 MG IM (07:09)
[2024-06-24] MEDS: dexamethasone 10 mg/mL INJ IM (07:09)
[2024-06-24 07:34] VITALS: BP 99/66; PULSE 74; O2SAT 100
[2024-06-24 07:37] VITALS: BP 99/66; PULSE 74; O2SAT 99
== END 2024-06-24 07:45 | disposition home or self-care (01) ==
PROVIDERS: Emergency Provider Family Medicine; PCP Nurse Practitioner
DX: S93.402A Sprain of unspecified ligament of left ankle, initial encounter (principal); S93.401A Sprain of unspecified ligament of right ankle, initial encounter; W10.9XXA Fall (on) (from) unspecified stairs and steps, initial encounter
CPT/HCPCS: 73610; 96372; 99284; J1100; J1885

== ENCOUNTER → 2024-08-02 13:23 | Outpatient (BNVA) | payer OTHER, SELFPAY | PROVIDERS: PCP Nurse Practitioner; Visit Provider Internal Medicine Rheumatology | DX: M06.041 Rheumatoid arthritis without rheumatoid factor, right hand (principal); M06.042 Rheumatoid arthritis without rheumatoid factor, left hand; Z79.899 Other long term (current) drug therapy; Z71.85 Encounter for immunization safety counseling; R21 Rash and other nonspecific skin eruption | CPT/HCPCS: 36415; 80076; 82565; 85025; 85651; 86140; 99214 ==

== ENCOUNTER 2024-09-15 00:39 | Emergency (ER) | payer OTHER, SELFPAY ==
--- NOTE | 2024-09-15 00:44 | ECG_ITS ---
[facility] 2024[facility]15 Pat Name: Violeta Michaels Department: Room: Gender: Female Signals Officer: : 1980 Requested By: Murtaza Otero Order Number: [id number] Eliz MD: Nabor Hays M.D. Measurements Intervals [place] Rate: 62 P: 53 MD: 127 QRS: 56 QRSD: 86 T: 22 QT: 394 QTc: 403 Interpretive Statements SINUS RHYTHM Compared to ECG 05/22/2023 02:55:51 Sinus arrhythmia no longer present Electronically Signed On 09-15-2024 17:51:02 MOLD PULLER by Nabor Hays M.D. [email or web address] [id number]
--- NOTE | 2024-09-15 00:48 | XRR_ITS ---
PROCEDURE INFORMATION: Exam: XR Chest Exam date and time: 09/15/2024 12:54 AM Age: 44 years old Clinical indication: Chest pressure and chest wall pain; Additional info: Chest pain TECHNIQUE: Imaging protocol: Radiologic exam of the chest. Views: 1 view. COMPARISON: CR XR chest 1V portable [id number] 05/22/2023 1:10 AM FINDINGS: Lungs: Unremarkable. No consolidation. Pleural spaces: Unremarkable. No pleural effusion. No pneumothorax. Heart/Mediastinum: Unremarkable. No cardiomegaly. Bones/joints: Unremarkable. XR/XR chest 1V portable [id number] IMPRESSION: No visualized acute cardiopulmonary process.
--- NOTE | 2024-09-15 00:49 | W.ED.CHESTPA ---
HPI - Chest Pain General: Chief Complaint: Chest Pain Stated Complaint: cp Time Seen by Provider: 09/15/24 00:43 History of Present Illness: Patient presents with intermittent chest pain for the last couple days. She is on her way here to the hospital to be checked out for the chest pain when she got lightheaded dizzy so she pulled over and called EMS. Patient does not have a cardiac history. Patient denies any nausea vomiting shortness of breath diaphoresis. She said the pain is almost resolved now. She did get 2 nitro and 324 mg aspirin en route by EMS. Related Data Home Medications ?Medication ?Instructions ?Recorded ?Confirmed ascorbic acid (vitamin C) 250 mg 250 mg PO DAILY 09/01/22 08/02/24 tablet cholecalciferol (vitamin D3) 25 25 mcg PO DAILY 09/01/22 08/02/24 mcg (1,000 unit) capsule levothyroxine 125 mcg capsule 125 mcg PO DAILY 09/01/22 08/02/24 albuterol sulfate 90 mcg/actuation 2 puff inhalation Q6H PRN 12/03/22 08/02/24 aerosol inhaler Shortness Of Breath cyclobenzaprine 10 mg tablet 10 mg PO DAILY PRN Muscle Spasm 09/28/23 08/02/24 Previous Rx's ?Medication ?Instructions ?Recorded Low profile Custom insoles #1 ea 09/28/23 budesonide 160 mcg-glycopyr 9 2 inh inhalation BID #10.7 grams 11/29/23 mcg-formot 4.8 mcg/actuation HFA inhaler (Breztri Aerosphere) fluticasone 250 mcg-salmeterol 50 1 inh inhalation BID #60 ea 01/06/24 mcg/dose blistr powdr for inhalation (Wixela Inhub) tiotropium bromide 1.25 2 puff inhalation DAILY #4 grams 01/06/24 mcg/actuation mist for inhalation (Spiriva Respimat) pantoprazole 40 mg tablet,delayed 40 mg PO BID #60 tabs 05/12/24 release diclofenac sodium 75 mg 75 mg PO Q12H PRN pain #20 tabs 06/24/24 tablet,delayed release abatacept 125 mg/mL subcutaneous 125 mg SUBCUT .Q7days #4 mL 08/02/24 syringe (Orencia) hydroxychloroquine 200 mg tablet 200 mg PO BID #180 tabs 08/02/24 prednisone 20 mg tablet See Rx Instructions PO .COMPLEX 08/02/24 PRN joint pain flare #30 tabs Allergies Allergy/AdvReac Type Severity Reaction Status Date / Time kiwi Allergy Intermediate Unknown Verified 08/02/24 13:43 leflunomide AdvReac Intermediate diarrhea Verified 08/02/24 13:43 Review of Systems General: Reports: 10 or more systems reviewed and unremarkable except in HPI and below PFSH ED PFSH: Medical History Seronegative rheumatoid arthritis of both hands Radial tunnel syndrome surgical release left arm Skin rash Immunization counseling High risk medication use Inflammatory arthritis Dianna's disease Attention deficit Autoimmune thyroiditis Cervicalgia Dysmenorrhea, unspecified Low ferritin level Iron deficiency anemia, unspecified Low back pain, unspecified Migraine with aura, not intractable, without status migrainosus Other fatigue Personal history of traumatic brain injury DEYANIRA (obstructive sleep apnea) Asthma Surgical History History of elbow surgery tendon re pair Family History Other Cancer Hypertension Lung disease Lupus Denies family history of Rheumatoid arthritis Diabetes CAD (coronary artery disease) Chronic kidney disease (CKD) Family history of premature coronary artery disease Stroke Social History Smoking and tobacco/nicotine status: never used tobacco/nicotine Alcohol intake: current Alcohol intake frequency: holidays/special occasions only Physical Exam Const: COMMON NORMALS: no acute distress, average body habitus, patient oriented x3, no limitations, healthy appearing, alert and well nourished HENMT: COMMON NORMALS: normocephalic, atraumatic, hearing grossly normal bilaterally, external ears normal, Normal external nose present, moist oral mucous membranes and oropharynx normal HEAD & SCALP: normocephalic and atraumatic NOSE: Normal external nose present EXTERNAL EAR: Yes external ears normal Neck/C-Spine: COMMON NORMALS: no JVD Chest: COMMONS NORMALS: normal inspection of the chest and normal palpation of entire chest wall Resp: COMMON NORMALS: normal respiratory effort, No retractions, No use of accessory muscles and clear to auscultation bilaterally AUSCULTATION: clear to auscultation bilaterally Cardio: COMMON NORMALS: no JVD, regular rate, regular rhythm, S1 normal heart sound present, S2 normal heart sound present, No gallops present (Cardio), No clicks present (Cardio), No murmurs present (Cardio) and No rub (Cardio) RATE: regular rate RHYTHM: regular rhythm HEART SOUNDS: S1 normal heart sound present and S2 normal heart sound present GI: COMMON NORMALS: Normal to inspection, nondistended, normoactive bowel sounds present, Soft to palpation, non-tender, No hepatosplenomegaly present and no masses PALPATION: Yes Soft to palpation and Yes No hepatosplenomegaly present Neuro: COMMON NORMALS: patient oriented x3 SENSORIUM/ORIENTATION: Yes alert Course Vital Signs: Vital signs: Vital Signs Temperature 97.2 F L 09/15/24 00:51 Pulse Rate 61 09/15/24 02:30 Respiratory Rate 18 09/15/24 00:51 Blood Pressure 126/77 09/15/24 02:30 Pulse Oximetry 97 09/15/24 02:30 Oxygen Delivery Me thod Room Air 09/15/24 00:51 MDM - Chest Pain Medical Decision Making Patient was worked up in standard chest pain fashion with serial EKGs, serial enzymes, chest x-ray all which were essentially benign. Patient was remained chest pain-free during her entire stay in the ER. Patient be discharged home. Medical Records I reviewed the patient's medical records. Lab Data I reviewed the patient's lab results. 09/15/24 01:14 09/15/24 01:14 Radiology Impressions Chest X-Ray 09/15/24 00:48 IMPRESSION: No visualized acute cardiopulmonary process. Laboratory Results WBC 10.49 10^3/uL (3.29-11.43) 09/15/24 01:14 RBC 3.92 10^6/uL (3.85-5.65) 09/15/24 01:14 Hgb 12.00 g/dL (11.27-16.99) 09/15/24 01:14 Hct 35.6 % (36-47) L 09/15/24 01:14 MCV 90.8 fl (85-98) 09/15/24 01:14 MCH 30.6 pg (27-33) 09/15/24 01:14 MCHC 33.7 g/dL (30-55) 09/15/24 01:14 RDW 12.1 % (12.1-15.1) 09/15/24 01:14 Plt Count 334 10^3/cmm (157-399) 09/15/24 01:14 MPV 9.5 fL (7.4-10.4) 09/15/24 01:14 Neut % (Auto) 62.9 % 09/15/24 01:14 Lymph % (Auto) 24.5 % 09/15/24 01:14 [place] % (Auto) 9.4 % 09/15/24 01:14 Eos % (Auto) 2.5 % 09/15/24 01:14 Baso % (Auto) 0.4 % 09/15/24 01:14 Neut # (Auto) 6.60 10^3/uL (1.8-7.7) 09/15/24 01:14 Lymph # (Auto) 2.6 10^3/uL (0.8-4.8) 09/15/24 01:14 [place] # (Auto) 1.0 10^3/uL (0.2-0.9) H 09/15/24 01:14 Eos # (Auto) 0.3 10^3/uL (0.0-0.8) 09/15/24 01:14 Baso # (Auto) 0.0 10^3/uL (0.0-0.1) 09/15/24 01:14 Nucleated RBC % (auto) 0 % 09/15/24 01:14 Nucleated RBCs # 0.0 /100WBC 09/15/24 01:14 PT 11.90 SECONDS (12.1-14.9) L 09/15/24 01:14 INR 0.82 (0.8-1.2) 09/15/24 01:14 Sodium 137 mmol/L (136-145) 09/15/24 01:14 Potassium 3.9 mmol/L (3.5-5.1) 09/15/24 01:14 Chloride 101 mmol/L (98-107) 09/15/24 01:14 Carbon Dioxide 23 mmol/L (22-29) 09/15/24 01:14 Anion Gap 16.9 (5-19) 09/15/24 01:14 BUN 12 mg/dL (6-20) 09/15/24 01:14 Creatinine 0.7 mg/dL (0.5-0.9) 09/15/24 01:14 GFR Calculation 91.3 mL/min (90-130) 09/15/24 01:14 Glucose 109 mg/dL (65-115) 09/15/24 01:14 Calculated Osmolality 284 mOsm/kg (285-295) L 09/15/24 01:14 Calcium 10.1 mg/dL (8.5-10.5) 09/15/24 01:14 Total Bilirubin 0.2 mg/dL (0.15-1.2) 09/15/24 01:14 AST 13 U/L (0-32) 09/15/24 01:14 ALT 15 U/L (0-33) 09/15/24 01:14 Alkaline Phosphatase 90 U/L (35-105) 09/15/24 01:14 Troponin T Baseline < 6 ng/L (0-10) 09/15/24 01:14 Troponin T 120 Minute 6.00 ng/L (0-10) 09/15/24 02:51 Delta Troponin T 0.79734 ABS# (0-10) 09/15/24 02:51 Total Protein 7.1 g/dL (6.6-8.7) 09/15/24 01:14 Albumin 4.1 g/dL (3.5-5.2) 09/15/24 01:14 Globulin 3.0 g/dL (1.3-4.6) 09/15/24 01:14 Urine Color Yellow (Yellow) 09/15/24 01:16 Urine Appearance Clear (CLEAR) 09/15/24 01:16 Urine pH 6.0 (5-7) 09/15/24 01:16 Ur Specific [place] 1.004 (1.005-1.030) L 09/15/24 01:16 Urine Protein Negative (Negative) 09/15/24 01:16 Urine Glucose (UA) Negative (Normal) 09/15/24 01:16 Urine Ketones Negative (Negative) 09/15/24 01:16 Urine Blood Negative (Negative) 09/15/24 01:16 Urine Nitrate Negative (Negative) 09/15/24 01:16 Urine Bilirubin Negative (Negative) 09/15/24 01:16 Urine Urobilinogen 0.2 mg/dL (Negative) 09/15/24 01:16 Ur Leukocyte Esterase Negative (Negative) 09/15/24 01:16 Urine RBC None /hpf (0-2) 09/15/24 01:16 Urine WBC None /hpf (0-5) 09/15/24 01:16 Ur Squamous Epith Cells None /hpf (0-5) 09/15/24 01:16 Amorphous Sediment Not Reportable 09/15/24 01:16 Urine Bacteria None /hpf (NONE) 09/15/24 01:16 All radiology interpretation(s) finalized by discharge Discharge Plan Discharge Patient Disposition: Home Clinical Impression: Chest pain Qualifiers: Chest pain type: unspecified Qualified Code(s): R07.9 - Chest pain, unspecified Condition: Stable Prescriptions: No Action albuterol sulfate 90 mcg/actuation HFA aerosol inhaler 2 puff inhalation Q6H PRN (Reason: Shortness Of Breath) Breztri Aerosphere 160-9-4.8 mcg/actuation HFA aerosol inhaler 2 inh inhalation BID Qty: 10.7 3RF cyclobenzaprine 10 mg tablet 10 mg PO DAILY PRN (Reason: Muscle Spasm) (DME) Low profile Custom insoles See Rx Instructions .Route .MEDSUPPLY Qty: 1 0RF Rx Instructions: [facility] directed by [facility] ascorbic acid (vitamin C) 250 mg tablet 250 mg PO DAILY cholecalciferol (vitamin D3) 25 mcg (1,000 unit) capsule 25 mcg PO DAILY levothyroxine 125 mcg capsule 125 mcg PO DAILY prednisone 20 mg tablet See Rx Instructions PO .COMPLEX PRN (Reason: joint pain flare) Qty: 30 1RF Rx Instructions: take 1 or 2 tab daily for 3-7 days as needed for arthritis flare PO PRN; hydroxychloroquine 200 mg tablet 200 mg PO BID Qty: 180 1RF Orencia 125 mg/mL syringe 125 mg SUBCUT .Q7days Qty: 4 3RF fluticasone propion-salmeterol [Wixela Inhub] 250-50 mcg/dose blister with device 1 inh inhalation BID Qty: 60 1RF Spiriva Respimat 1.25 mcg/actuation mist 2 puff inhalation DAILY Qty: 4 1RF pantoprazole 40 mg tablet,delayed release (DR/EC) 40 mg PO BID Qty: 60 3RF diclofenac sodium 75 mg tablet,delayed release (DR/EC) 75 mg PO Q12H PRN (Reason: pain) Qty: 20 0RF Discharge Orders: Discharge ED (Routine); Ordered 09/15/24 Ordered By: Murtaza Otero Referrals: Sarah Santiago, [facility] CENTER TEAM LEADER [Primary Care Provider] - 1 week Patient Instructions: Chest Pain (ED) Activity Restrictions/Additional Instructions: Your evaluation ER did not show any acute coronary cause of your chest pain. Your chest pain is felt to be noncardiac in nature at this time. If your chest pain changes or worsens please feel free to return to the ER otherwise follow-up with your family practice physician within the next 7 days for further evaluation and treatment. Print Language: German Coding Level of Care Code ED Warehouse Trainer for Maricarmen Michel
[2024-09-15 00:51] VITALS: BP 173/96; PULSE 71; RESP 18; TEMP 36.2; O2SAT 99; BMI 35.7
[2024-09-15 01:26] LABS: Basophils % 0.4 %; Eosinophils # 0.3 10^3/uL (0.0-0.8); Eosinophils % 2.5 %; Hematocrit 35.6 % (36-47); Lymphocytes # 2.6 10^3/uL (0.8-4.8); Lymphocytes % 24.5 %; Mean Corpuscular HGB Conc 33.7 g/dL (30-55); Mean Corpuscular Hemoglobin 30.6 pg (27-33); Mean Corpuscular Volume 90.8 fl (85-98); Mean Platelet Volume 9.5 fL (7.4-10.4); Monocytes % 9.4 %; Neutrophils % 62.9 %; Nucleated Red Blood Cells % 0 %; Platelet Count 334 10^3/cmm (157-399); Red Blood Count 3.92 10^6/uL (3.85-5.65); Red Cell Distribution Width 12.1 % (12.1-15.1); White Blood Count 10.49 10^3/uL (3.29-11.43)
[2024-09-15 01:28] LABS: Bilirubin Urine Negative (Negative); Blood Urine Negative (Negative); Glucose Urine UA Negative (Normal); Ketones Urine Negative (Negative); Leukocyte Esterase Urine Negative (Negative); Nitrate Urine Negative (Negative); Protein Urine Negative (Negative); Specific Gravity, Urine 1.004 (1.005-1.030); Urine Appearance Clear (CLEAR); Urine Color Yellow (Yellow); Urobilinogen Urine 0.2 mg/dL (Negative)
[2024-09-15 01:34] LABS: Add Urine Microscopic? YES
[2024-09-15 01:40] LABS: INR 0.82 (0.8-1.2)
[2024-09-15 01:42] VITALS: BP 175/96; PULSE 65; O2SAT 99
[2024-09-15 02:02] LABS: Troponin(5th) Baseline < 6 ng/L (0-10)
[2024-09-15 02:04] LABS: Alanine Aminotransferase 15 U/L (0-33); Albumin Level 4.1 g/dL (3.5-5.2); Alkaline Phosphatase 90 U/L (35-105); Anion Gap 16.9 (5-19); Aspartate Amino Transferase 13 U/L (0-32); Blood Urea Nitrogen 12 mg/dL (6-20); Calcium 10.1 mg/dL (8.5-10.5); Carbon Dioxide 23 mmol/L (22-29); Chloride 101 mmol/L (98-107); Glomerular Filtration Rate 91.3 mL/min (90-130); Glucose 109 mg/dL (65-115); Osmolality Calculated 284 mOsm/kg (285-295); Potassium 3.9 mmol/L (3.5-5.1); Sodium 137 mmol/L (136-145); Total Bilirubin 0.2 mg/dL (0.15-1.2); Total Protein 7.1 g/dL (6.6-8.7)
[2024-09-15 02:25] VITALS: BP 114/71; PULSE 62; O2SAT 99
[2024-09-15 02:30] VITALS: BP 126/77; PULSE 61; O2SAT 97
[2024-09-15 03:12] LABS: Troponin 5 2HR Delta 0.00001 ABS# (0-10)
[2024-09-15 03:15] VITALS: BP 104/70; PULSE 76; O2SAT 99
[2024-09-15 03:24] VITALS: BP 104/70; PULSE 63; O2SAT 98
== END 2024-09-15 03:26 | disposition home or self-care (01) ==
PROVIDERS: Emergency Provider Emergency Medicine; PCP Nurse Practitioner
DX: R07.9 Chest pain, unspecified (principal)
CPT/HCPCS: 36415; 71045; 80053; 81001; 84484; 85025; 85610; 93005; 99285

== ENCOUNTER 2024-09-15 13:38 | Emergency (ER) | payer OTHER, SELFPAY ==
--- NOTE | 2024-09-15 13:40 | XR_ITS ---
WS: [id number] Exam: XR chest 1V portable [id number] Date/Time of Exam: 09/15/2024 1:45 PM Reason For Exam: cp Comparison 09/15/2024. The lungs are clear and fully inflated. Normal cardiomediastinal silhouette and regional bony elements. XR/XR chest 1V portable [id number] IMPRESSION: 1. Negative chest.
--- NOTE | 2024-09-15 13:40 | ECG_ITS ---
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 Measurements Intervals [place] Rate: 66 P: 65 PA: 126 QRS: 76 QRSD: 88 T: 3 QT: 385 QTc: 404 Interpretive Statements SINUS RHYTHM LOW QRS VOLTAGE IN PRECORDIAL LEADS [QRS DEFLECTION < 1.0 mV IN CHEST LEADS] NONSPECIFIC ST & T-WAVE ABNORMALITY Compared to ECG 09/15/2024 00:44:57 Low QRS voltage now present T-wave abnormality now present Electronically Signed On 09-15-2024 17:50:03 [employer] SOFTWARE DEVELOPER by Nabor Hays M.D. [email or web address]
[2024-09-15 13:52] VITALS: BP 126/84; PULSE 64; RESP 14; TEMP 36.8; O2SAT 100
[2024-09-15 14:35] LABS: Basophils % 0.4 %; Eosinophils # 0.1 10^3/uL (0.0-0.8); Eosinophils % 1.5 %; Hematocrit 38.6 % (36-47); Lymphocytes # 2.3 10^3/uL (0.8-4.8); Lymphocytes % 24.3 %; Mean Corpuscular HGB Conc 32.9 g/dL (30-55); Mean Corpuscular Hemoglobin 30.3 pg (27-33); Mean Corpuscular Volume 92.1 fl (85-98); Mean Platelet Volume 9.3 fL (7.4-10.4); Monocytes # 1.1 10^3/uL (0.2-0.9); Monocytes % 11.3 %; Neutrophils # 5.83 10^3/uL (1.8-7.7); Neutrophils % 62.3 %; Nucleated Red Blood Cells % 0 %; Platelet Count 335 10^3/cmm (157-399); Red Blood Count 4.19 10^6/uL (3.85-5.65); Red Cell Distribution Width 12.1 % (12.1-15.1); White Blood Count 9.36 10^3/uL (3.29-11.43)
[2024-09-15 14:53] LABS: Troponin(5th) Baseline < 6 ng/L (0-10)
[2024-09-15 14:56] LABS: Alanine Aminotransferase 14 U/L (0-33); Albumin Level 4.1 g/dL (3.5-5.2); Alkaline Phosphatase 80 U/L (35-105); Anion Gap 16.6 (5-19); Aspartate Amino Transferase 14 U/L (0-32); Blood Urea Nitrogen 7 mg/dL (6-20); Calcium 9.4 mg/dL (8.5-10.5); Carbon Dioxide 25 mmol/L (22-29); Chloride 99 mmol/L (98-107); Creatinine Clr Calc Pharmacy 130.6474; Globulin 3.6 g/dL (1.3-4.6); Glomerular Filtration Rate 109.1 mL/min (90-130); Glucose 94 mg/dL (65-115); Lipase 20 U/L (13-60); Osmolality Calculated 282 mOsm/kg (285-295); Potassium 3.6 mmol/L (3.5-5.1); Sodium 137 mmol/L (136-145); Total Bilirubin 0.3 mg/dL (0.15-1.2); Total Protein 7.7 g/dL (6.6-8.7)
[2024-09-15 17:35] LABS: Troponin 5 2HR Delta 0.00001 ABS# (0-10)
--- NOTE | 2024-09-15 17:40 | ECG_ITS ---
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
[2024-09-15 17:45] VITALS: PULSE 64; RESP 14; O2SAT 100
--- NOTE | 2024-09-15 17:49 | CTR_ITS ---
PROCEDURE INFORMATION: Exam: CTA Head With Contrast, Arteriography Exam date and time: 09/15/2024 6:45 PM Age: 44 years old Clinical indication: Other: Right facial numbness and tingling; Additional info: Right facial numbness, visual changes TECHNIQUE: Imaging protocol: Computed tomographic angiography of the head with contrast. Exam focused on the arteries. 3D rendering (Not supervised by radiologist): MIP and/or 3D reconstructed images were created by the technologist. Radiation optimization: All CT scans at this facility use at least one of these dose optimization techniques: automated exposure control; mA and/or kV adjustment per patient size (includes targeted exams where dose is matched to clinical indication); or iterative reconstruction. Contrast material: OMNI 350; Contrast volume: 100 ml; Contrast route: INTRAVENOUS (IV); COMPARISON: CT head wo con* [id number] 09/15/2024 6:06 PM RADIATION DOSE METRICS: Total DLP (mGy-cm): 473.86 FINDINGS: ANTERIOR CIRCULATION: Right internal carotid artery: Intracranial segment is patent with no significant stenosis. No aneurysm. Right middle cerebral artery: No occlusion or significant stenosis. No aneurysm. Right anterior cerebral artery: No occlusion or significant stenosis. No aneurysm. Left internal carotid artery: Intracranial segment is patent with no significant stenosis. No aneurysm. Left middle cerebral artery: No occlusion or significant stenosis. No aneurysm. Left anterior cerebral artery: No occlusion or significant stenosis. No aneurysm. POSTERIOR CIRCULATION: Right vertebral artery: No occlusion or significant stenosis. No aneurysm. Left vertebral artery: No occlusion or significant stenosis. No aneurysm. Basilar artery: No occlusion or significant stenosis. No aneurysm. Right posterior cerebral artery: No occlusion or significant stenosis. No aneurysm. Left posterior cerebral artery: No occlusion or significant stenosis. No aneurysm. Brain: No definite mass, mass effect, or midline shift. Cerebral ventricles: No ventriculomegaly. Bones/joints: Unremarkable. No acute fracture. Soft tissues: Unremarkable. PROCEDURE INFORMATION: Exam: CTA Neck With Contrast Exam date and time: 09/15/2024 6:45 PM Age: 44 years old Clinical indication: Other: Right facial numbness and tingling; Additional info: Right facial numbness, visual changes TECHNIQUE: Imaging protocol: Computed tomographic angiography of the neck with contrast. Exam focused on the cervical segments of the vasculature. 3D rendering (Not supervised by radiologist): MIP and/or 3D reconstructed images were created by the technologist. Radiation optimization: All CT scans at this facility use at least one of these dose optimization techniques: automated exposure control; mA and/or kV adjustment per patient size (includes targeted exams where dose is matched to clinical indication); or iterative reconstruction. Contrast material: OMNI 350; Contrast volume: 100 ml; Contrast route: INTRAVENOUS (IV); COMPARISON: CT head wo con* [id number] 09/15/2024 6:06 PM RADIATION DOSE METRICS: Total DLP (mGy-cm): 473.86 FINDINGS: Right common carotid artery: No stenosis. No dissection or occlusion. Right internal carotid artery: No stenosis of the extracranial segment. No dissection or occlusion. Right external carotid artery: No occlusion or stenosis of the origin. Left common carotid artery: No stenosis. No dissection or occlusion. Left internal carotid artery: No stenosis of the extracranial segment. No dissection or occlusion. Left external carotid artery: No occlusion or stenosis of the origin. Right vertebral artery: No stenosis. No dissection or occlusion. Left vertebral artery: No stenosis. No dissection or occlusion. Soft tissues: Normal. No significant soft tissue swelling. Bones/joints: No acute fracture. CT/CT angio headneck* [id number] IMPRESSION: No large vessel stenosis or occlusion. IMPRESSION: No stenosis or occlusion. REFERENCES: NASCET CRITERIA. The degree of stenosis in the cervical segment of the internal carotid artery is based on NASCET criteria. Normal is no stenosis. Mild is less than 50% stenosis. Moderate is 50-69% stenosis. Severe is 70% to 99% stenosis. Total occlusion is no detectable patent lumen.
--- NOTE | 2024-09-15 17:49 | CTR_ITS ---
PROCEDURE INFORMATION: Exam: CT Head Without Contrast Exam date and time: 09/15/2024 6:06 PM Age: 44 years old Clinical indication: Numbness / parasthesia and visual disturbance; Right; Additional info: Right face numbness, visual changes, HX of migraines TECHNIQUE: Imaging protocol: Computed tomography of the head without contrast. Radiation optimization: All CT scans at this facility use at least one of these dose optimization techniques: automated exposure control; mA and/or kV adjustment per patient size (includes targeted exams where dose is matched to clinical indication); or iterative reconstruction. COMPARISON: No relevant prior studies available. RADIATION DOSE METRICS: Total DLP (mGy-cm): 1000.07 FINDINGS: Brain: Normal. No hemorrhage. Unremarkable white matter. No mass effect. Cerebral ventricles: No ventriculomegaly. Paranasal sinuses: Visualized sinuses are unremarkable. No fluid levels. Mastoid air cells: Visualized mastoid air cells are well aerated. Bones: Unremarkable. No acute fracture. Soft tissues: Unremarkable. CT/CT head wo con* [id number] IMPRESSION: No acute intracranial abnormality.
--- NOTE | 2024-09-15 17:55 | ED_ITS ---
HPI - Chest Pain 2 General: Chief Complaint: Chest Pain Stated Complaint: numbness in face, headache, chest pain Time Seen by Provider: 09/15/24 15:06 Source: patient Mode of arrival: ambulatory Limitations: no limitations History of Present Illness: Patient is a 44-year-old female with no pertinent cardiac history, who was seen here in the emergency department just last night, returns back stating that she is having continued chest pain and facial numbness. States that she tried following up with primary care but was told to come back here for the facial numbness. States it is to her right side she is having intermittent visual changes in both eyes. Has appointment with neurology tomorrow, as she states she recently had an MRI that showed lesions on my brain. Denies any other neurological deficits. Pain reported to be substernal nonradiating. No shortness of breath, palpitations, peripheral edema, or other symptoms noted at this time. She does report a history of migraines but states this does not feel similar. No specific alleviating or exacerbating factors to the visual changes or facial numbness. At this time of examination is starting to report a headache. MD complaint: chest pain Onset (ago): day(s) Timing of current episode: constant Prior episodes: Yes Onset: during rest Pain location: substernal Pain radiation: none Severity: mild Relieving factors: nothing Exacerbating factors: nothing Associated symptoms: Deny abdominal pain, dyspnea, fever(s), nausea, palpitations or vomiting Related Data Home Medications ?Medication ?Instructions ?Recorded ?Confirmed adalimumab-bwwd 40 mg/0.4 mL 40 mg SUBCUT Q14D 5 09/15/24 subcutaneous auto-injector (Hadlima(CF) PushTouch) dicyclomine 10 mg capsule 10 mg PO TID 09/15/24 folic acid 1 mg tablet 1 mg PO DAILY 09/15/2409/15 ibuprofen 800 mg tablet 800 mg PO TID PRN Pain 09/1509/15/24 prednisone 5 mg tablet 5 mg PO DAILY 09/15/2409/15 sulfasalazine 500 mg 1,000 g PO BID 09/15/2408/28 tablet,delayed release Previous Rx's ?Medication ?Instructions ?Recorded fluticasone 250 mcg-salmeterol 50 1 inh inhalation BID #60 ea 01/06/24 mcg/dose blistr powdr for inhalation (Wixela Inhub) tiotropium bromide 1.25 2 puff inhalation DAILY #4 g lakeisha 01/06/24 mcg/actuation mist for inhalation (Spiriva Respimat) abatacept 125 mg/mL subcutaneous 125 mg SUBCUT .Q7days #4 mL 08/02/24 syringe (Orencia) hydroxychloroquine 200 mg tablet 200 mg PO BID #180 ta bs 08/02/24 prednisone 20 mg tablet See Rx Instructions PO .COMP RG 08/02/24 PRN joint pain flare #30 tabs Allergies Allergy/AdvReac Type Severity Reaction Status Date / Time kiwi Allergy Intermediate Unknown Verified 09/15/24 13:56 leflunomide AdvReac Intermediate diarrhea Verified 09/15/24 13:56 Review of Systems 2 General: Reports: 10 or more systems reviewed and unremarkable except in HPI and below Const: Denies: fever(s), chills or fatigue Eyes: Reports: change in vision ENMT: Denies: throat pain, ear or mastoid pain or nasal discharge Card: Reports: chest pain; Denies: palpitations, swelling of feet/ankles or lightheadedness Resp: Denies: dyspnea, productive cough or wheezing GI: Denies: abdominal pain, nausea, vomiting, diarrhea or constipation : Denies: flank pain, difficulty voiding, dysuria or urinary frequency Musc: Denies: neck pain, back pain or joint pain Skin/Breast: Denies: rash Neuro: Reports: headache(s) and other (Facial numbness); Denies: numbness in extremities, weakness in extremities, Slurred speech present, seizure-like activity or involuntary movements PFSH ED 2 PFSH: Medical History Seronegative rheumatoid arthritis of both hands Radial tunnel syndrome surgical release left arm Skin rash Immunization counseling High risk medication use Inflammatory arthritis Dianna's disease Attention deficit Autoimmune thyroiditis Cervicalgia Dysmenorrhea, unspecified Low ferritin level Iron deficiency anemia, unspecified Low back pain, unspecified Migraine with aura, not intractable, without status migrainosus Other fatigue Personal history of traumatic brain injury DEYANIRA (obstructive sleep apnea) Asthma Surgical History History of elbow surgery tendon re pair Family History Other Cancer Hypertension Lung disease Lupus Denies family history of Rheumatoid arthritis Diabetes CAD (coronary artery disease) Chronic kidney disease (CKD) Family history of premature coronary artery disease Stroke Social History Smoking and tobacco/nicotine status: never used tobacco/nicotine Alcohol intake: current Alcohol intake frequency: holidays/special occasions only Physical Exam 2 Const: COMMON NORMALS: no acute distress, patient oriented x3 and no limitations GENERAL APPEARANCE: cooperative, comfortable and well developed ORIENTATION/CONSCIOUSNESS: Yes awake, Yes oriented to person, Yes oriented to place and Yes oriented to time HENMT: COMMON NORMALS: normocephalic, atraumatic and hearing grossly normal bilaterally HEAD & SCALP: normocephalic and atraumatic Eye: COMMON NORMALS: Equal, round and reactive pupils present, EOMs intact bilaterally and conjunctivae normal CONJUNCTIVA: Yes conjunctivae normal P UPIL: Yes Equal, round and reactive pupils present Neck/C-Spine: COMMON NORMALS: full ROM, supple and no JVD Resp: COMMON NORMALS: normal respiratory effort, No retractions, No use of accessory muscles and clear to auscultation bilaterally AUSCULTATION: clear to auscultation bilaterally Cardio: COMMON NORMALS: no JVD, regular rate, regular rhythm, No clicks present (Cardio), No murmurs present (Cardio) and No rub (Cardio) RATE: r egular rate RHYTHM: regular rhythm GI: COMMON NORMALS: Normal to inspection, nondistended, normoactive bowel sounds present, Soft to palpation and non-tender AUSCULTATION: Yes normoactive bowel sounds PALPATION: Yes Soft to palpation RECTAL EXAM: d eferred Extremity: COMMON NORMALS: normal to inspection, full ROM, capillary refill normal and no pedal edema Neuro: COMMON NORMALS: patient oriented x3, CN's II-XII intact bilaterally, moves all extremities, no focal motor deficits and no sensory deficits noted SENSORIUM/ORIENTATION: Yes oriented to person, Yes oriented to place and Yes oriented to time MOTOR EXAM: 5/5 motor strength present throughout, Pronator motor function not present and Motor abnormalities not present Psych: COMMON NORMALS: mental status grossly normal and Normal thought process present THOUGHT PROCESS: Normal thought process present Skin: COMMON NORMALS: no rashes or lesions noted GENERAL SKIN EXAM: no rashes or lesions noted Course 2 Vital Signs: Vital signs: Vital Signs Temperature 98.2 F 09/15/24 13:52 Pulse Rate 60 09/15/24 19:00 Respiratory Rate 18 09/15/24 19:00 Blood Pressure 138/67 09/15/24 19:00 Pulse Oximetry 100 09/15/24 19:00 Oxygen Delivery Me thod Room Air 09/15/24 13:52 MDM - Chest Pain Medical Decision Making Patient presenting for the second time in 24 hours for continued chest pain, states she was referred back by her PCP for facial numbness as well. Neurologically intact on physical exam. Baseline troponin was normal and 2-hour troponin also normal. EKG reviewed with physician was unchanged. X-ray normal. She had reported to me that she has previous lesions on her brain reported by MRI, head CT obtained which is unremarkable and a head neck CTA did not demonstrate any large vessel stenosis or occlusion. Vitals have been within normal limits. Will be allowed discharge home and follow-up with primary care and neurology. Lab Data 09/15/24 14:27 09/15/24 14:27 Radiology Impressions Chest X-Ray 09/15/24 13:40 IMPRESSION: 1. Negative chest. Head CT 09/15/24 17:49 IMPRESSION: No acute intracranial abnormality. Head/Neck CTA 09/15/24 17:49 IMPRESSION: No large vessel stenosis or occlusion. IMPRESSION: No stenosis or occlusion. REFERENCES: NASCET CRITERIA. The degree of stenosis in the cervical segment of the internal carotid artery is based on NASCET criteria. Normal is no stenosis. Mild is less than 50% stenosis. Moderate is 50-69% stenosis. Severe is 70% to 99% stenosis. Total occlusion is no detectable patent lumen. Laboratory Results WBC 9.36 10^3/uL (3.29-11.43) 09/15/24 14:27 RBC 4.19 10^6/uL (3.85-5.65) 09/15/24 14:27 Hgb 12.70 g/dL (11.27-16.99) 09/15/24 14:27 Hct 38.6 % (36-47) 09/15/24 14:27 MCV 92.1 fl (85-98) 09/15/24 14:27 MCH 30.3 pg (27-33) 09/15/24 14:27 MCHC 32.9 g/dL (30-55) 09/15/24 14:27 RDW 12.1 % (12.1-15.1) 09/15/24 14:27 Plt Count 335 10^3/cmm (157-399) 09/15/24 14:27 MPV 9.3 fL (7.4-10.4) 09/15/24 14:27 Neut % (Auto) 62.3 % 09/15/24 14:27 Lymph % (Auto) 24.3 % 09/15/24 14:27 [place] % (Auto) 11.3 % 09/15/24 14:27 Eos % (Auto) 1.5 % 09/15/24 14:27 Baso % (Auto) 0.4 % 09/15/24 14:27 Neut # (Auto) 5.83 10^3/uL (1.8-7.7) 09/15/24 14:27 Lymph # (Auto) 2.3 10^3/uL (0.8-4.8) 09/15/24 14:27 [place] # (Auto) 1.1 10^3/uL (0.2-0.9) H 09/15/24 14:27 Eos # (Auto) 0.1 10^3/uL (0.0-0.8) 09/15/24 14:27 Baso # (Auto) 0.0 10^3/uL (0.0-0.1) 09/15/24 14:27 Nucleated RBC % (auto) 0 % 09/15/24 14:27 Nucleated RBCs # 0.0 /100WBC 09/15/24 14:27 Sodium 137 mmol/L (136-145) 09/15/24 14:27 Potassium 3.6 mmol/L (3.5-5.1) 09/15/24 14:27 Chloride 99 mmol/L (98-107) 09/15/24 14:27 Carbon Dioxide 25 mmol/L (22-29) 09/15/24 14:27 Anion Gap 16.6 (5-19) 09/15/24 14:27 BUN 7 mg/dL (6-20) 09/15/24 14:27 Creatinine 0.6 mg/dL (0.5-0.9) 09/15/24 14:27 GFR Calculation 109.1 mL/min (90-130) 09/15/24 14:27 Glucose 94 mg/dL (65-115) 09/15/24 14:27 Calculated Osmolality 282 mOsm/kg (285-295) L 09/15/24 14:27 Calcium 9.4 mg/dL (8.5-10.5) 09/15/24 14:27 Total Bilirubin 0.3 mg/dL (0.15-1.2) 09/15/24 14:27 AST 14 U/L (0-32) 09/15/24 14:27 ALT 14 U/L (0-33) 09/15/24 14:27 Alkaline Phosphatase 80 U/L (35-105) 09/15/24 14:27 Troponin T Baseline < 6 ng/L (0-10) 09/15/24 14:27 Troponin T 120 Minute 6.00 ng/L (0-10) 09/15/24 16:41 Delta Troponin T 0.13123 ABS# (0-10) 09/15/24 16:41 Total Protein 7.7 g/dL (6.6-8.7) 09/15/24 14:27 Albumin 4.1 g/dL (3.5-5.2) 09/15/24 14:27 Globulin 3.6 g/dL (1.3-4.6) 09/15/24 14:27 Lipase 20 U/L (13-60) 09/15/24 14:27 All radiology interpretation(s) finalized by discharge Discharge Plan Discharge Patient Disposition: Home Clinical Impression: Atypical migraine Chest pain Qualifiers: Chest pain type: unspecified Qualified Code(s): R07.9 - Chest pain, unspecified Condition: Stable Prescriptions: No Action prednisone 20 mg tablet See Rx Instructions PO .COMPLEX PRN (Reason: joint pain flare) Qty: 30 1RF Rx Instructions: take 1 or 2 tab daily for 3-7 days as needed for arthritis flare PO PRN; hydroxychloroquine 200 mg tablet 200 mg PO BID Qty: 180 1RF Orencia 125 mg/mL syringe 125 mg SUBCUT .Q7days Qty: 4 3RF fluticasone propion-salmeterol [Wixela Inhub] 250-50 mcg/dose blister with device 1 inh inhalation BID Qty: 60 1RF Spiriva Respimat 1.25 mcg/actuation mist 2 puff inhalation DAILY Qty: 4 1RF ibuprofen 800 mg Tablet 800 mg PO TID PRN (Reason: Pain) prednisone 5 mg Tablet 5 mg PO DAILY sulfasalazine 500 mg Tablet,Delayed Release (Dr/Ec) 1,000 g PO BID folic acid 1 mg Tablet 1 mg PO DAILY dicyclomine 10 mg Capsule 10 mg PO TID Hadlima(CF) PushTouch 40 mg/0.4 mL Auto-Injector 40 mg SUBCUT Q14D Discharge Orders: Discharge ED (Routine); Ordered 09/15/24 Ordered By: Tenzin Covington Referrals: Sarah Santiago, [facility] [Primary Care Provider] - Activity Restrictions/Additional Instructions: Follow-up with neurology as already planned. Follow-up with primary care. Return with any new or worsening. Continue taking home medications. Print Language: Portuguese Coding Level of Care Code ED [employer] for Maricarmen Michel
[2024-09-15 19:00] VITALS: BP 138/67; PULSE 60; RESP 18; O2SAT 100
[2024-09-15] MEDS: acetaminophen 500 mg Tablet 1000 MG PO (19:01)
== END 2024-09-15 20:54 | disposition home or self-care (01) ==
PROVIDERS: Emergency Medicine; Emergency Provider Physician Assistant; PCP Nurse Practitioner
DX: G43.809 Other migraine, not intractable, without status migrainosus (principal); R07.9 Chest pain, unspecified
CPT/HCPCS: 36415; 70450; 70496; 70498; 71045; 80053; 83690; 84484; 85025; 93005; 99285

== ENCOUNTER → 2024-09-28 07:51 | Outpatient (BNVA) | payer OTHER, SELFPAY | PROVIDERS: PCP Nurse Practitioner; Visit Provider Podiatrist Foot & Ankle Surgery | DX: Q66.71 Congenital pes cavus, right foot (principal); Q66.72 Congenital pes cavus, left foot; M72.2 Plantar fascial fibromatosis | CPT/HCPCS: 99213 ==

== ENCOUNTER → 2024-11-08 12:56 | Outpatient (BNVA) | payer OTHER, SELFPAY | PROVIDERS: PCP Nurse Practitioner; Visit Provider Internal Medicine Rheumatology | DX: Z79.899 Other long term (current) drug therapy (principal); Z71.85 Encounter for immunization safety counseling; R21 Rash and other nonspecific skin eruption; M06.041 Rheumatoid arthritis without rheumatoid factor, right hand; M06.042 Rheumatoid arthritis without rheumatoid factor, left hand | CPT/HCPCS: 99214 ==

== ENCOUNTER → 2025-03-09 12:46 | Outpatient (BNVA) | payer OTHER, SELFPAY | PROVIDERS: PCP Nurse Practitioner; Visit Provider Internal Medicine Rheumatology | DX: Z79.899 Other long term (current) drug therapy (principal); Z71.85 Encounter for immunization safety counseling; R21 Rash and other nonspecific skin eruption; M06.041 Rheumatoid arthritis without rheumatoid factor, right hand; M06.042 Rheumatoid arthritis without rheumatoid factor, left hand | CPT/HCPCS: 36415; 80076; 82306; 82565; 82657; 85025; 85651; 86140; 86480; 99214 ==

== ENCOUNTER 2025-05-15 15:03 | Outpatient (CLI) | payer OTHER, SELFPAY ==
--- NOTE | 2025-05-15 15:08 | MM_ITS ---
WS: [id number] BILATERAL 3D TOMOSYNTHESIS DIGITAL SCREENING MAMMOGRAPHY WITH CAD CLINICAL INFORMATION: SCREENING HISTORY: Screening mammogram. No current complaints. COMPARISON: 2022 TECHNIQUE: Bilateral CC and MLO views. FINDINGS: Scattered fibroglandular densities bilaterally. No suspicious focal mass, asymmetry, calcifications, or architectural distortion. No evidence of malignancy. MM/MM scr BI tomosynthesis [id number] IMPRESSION: DENSITY: There are scattered areas of fibroglandular density. BI-RADS: 1 - Negative. FOLLOW UP: 1 Year Follow-up Recommend return to annual screening mammography.
== END 2025-05-15 15:04 | disposition home or self-care (01) ==
LOC: RAD 15:03
PROVIDERS: PCP Nurse Practitioner; Visit Provider Nurse Practitioner
DX: Z12.31 Encounter for screening mammogram for malignant neoplasm of breast (principal); R92.323 Mammographic fibroglandular density, bilateral breasts
CPT/HCPCS: 77063; 77067

== ENCOUNTER → 2025-07-25 12:27 | Outpatient (BNVA) | payer OTHER, SELFPAY | PROVIDERS: PCP Nurse Practitioner; Visit Provider Internal Medicine Rheumatology | DX: M06.041 Rheumatoid arthritis without rheumatoid factor, right hand (principal); M06.042 Rheumatoid arthritis without rheumatoid factor, left hand; Z79.899 Other long term (current) drug therapy; Z71.85 Encounter for immunization safety counseling; R21 Rash and other nonspecific skin eruption | CPT/HCPCS: 99214 ==